=== PATIENT | female | born 1970 | race Caucasian/White ===

== ENCOUNTER 2017-02-19 18:22 | Emergency (ER) | payer BC | END 2017-02-19 20:06 | disposition left against medical advice (07) | LOC: UCCORT 18:22 | DX: L98.9 Disorder of the skin and subcutaneous tissue, unspecified (principal); Z53.21 Procedure and treatment not carried out due to patient leaving prior to being seen by health care provider ==

== ENCOUNTER 2017-11-20 16:32 | Emergency (ER) | payer BC ==
--- OUTSIDE RECORDS SUMMARY | 2017-11-20 16:45 | XMS REPORT ---
:1970 External Reference #:[id number] Author Organization [facility] Address [address], [address] [place] [address] Phone [phone] Care Team Providers Name Role Phone Shelby Virk, CVOR NURSE Care Team Information Clin Nurse Unavailable Shelby Virk, CVOR NURSE Primary Care Physician Unavailable Payers Type Date Identification Numbers Payment Provider Subscriber Commercial Policy Number: [id number] Elana Tesfaye PayID: [id number] [address] [address] [place] [address] Problems Date Description Provider Status Onset: 03/28/2011 Localized, primary osteoarthritis Reji Burrows MD Active Onset: 03/27/2013 Localized, primary osteoarthritis Reuben Juan M.D., Active of the pelvic region and thigh FACS Onset: 07/05/2017 Obstructive sleep apnea syndrome Jordan Ling MD Active Onset: 07/05/2017 Tobacco user Jordan Ling MD Active Onset: 07/05/2017 Premature beats Jordan Ling MD Active Onset: 07/26/2016 Aftercare following joint Eric Dave M.D. Active replacement surgery Onset: 03/09/2016 Morbid obesity Gaurav Vasquez M.D. Active Onset: 07/08/2015 Arthralgia of the pelvic region Gaurav Vasquez M.D. 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 2017 24HR by mouth kevin Hickman M.D., [facility] Citalopram / Active Tablets 40mg 1 by Unknown Hydrobromide 0000 mouth every day Singulair / Active Tablets 10mg 1 by Unknown 0000 mouth every day B Complex-B12 / Active Tablets 500mcg once Unknown 0000 daily Biotin / Active Capsules 5000mcg 1 by Unknown 0000 mouth every day Olmesartan / Active Tablets 40-25mg 1 by Unknown Medoxomil/[place] 0000 mouth chlorothiazide every day Esomeprazole / Active Capsules 40mg 1 tab Unknown Magnesium 0000 DR every day every morning Buspirone HCL / Active Tablets 15mg take one Unknown 0000 tablet by mouth three times a day as needed for anxiety Celecoxib / Active Capsules 200mg 2 po Unknown 0000 daily Hydroxyzine HCL / Active Tablets 25mg 1-2 tabs Unknown 0000 by mouth three times a day as needed anxiety Oxycodone HCL / Active Tablets 5mg 1-2 every Unknown 0000 4-6 hour as needed pain Calcium 600 / Active Tablets 600mg 1 by Unknown 0000 mouth every day Multi Vitamin / Active Tablets 1 by Unknown Daily 0000 mouth every day Claritin / Active Tablets 10mg take one Unknown 0000 tablet by mouth every day Augmentin 09/01/ Hx Tablets 875-125mg 14tabs 1 tablet J01.90 Waldo M. 2017 twice kevin Hickman M.D., [facility] Diltiazem CD 07/05/ Hx Caps ER 120mg 30caps 1 by I10 Jordan 2017 - 24HR mouth MD Sushil 09/01/ every day 2018 (can be taken am or at bedtime) I49.3 Hydrocodone-Acetaminophen 02/25/2015 - Hx Tablets 5-325mg 30tabs 1 by Gaurav 03/09/2016 mouth Pedro, every 6 M.D. hours as needed pain Fexofenadine HCL - Hx Unknown 09/21/2010 Nexium - Hx 40mg 1 po qd Unknown 02/25/2015 Diovan HCT - Hx 160mg 1 po qd Unknown 02/25/2015 Provera - Hx Unknown 09/21/2010 Multivitamins - Hx Unknown 09/21/2010 Vitamin D - Hx 3000 1po qd Unknown 05/25/2016 Ibuprofen - Hx Unknown 09/21/2010 Aleve - Hx Unknown 09/21/2010 Celebrex - Hx Capsules 200mg 7caps 1 po bid Unknown 07/26/2016 Fexofenadine HCL - Hx Tablets 180mg 1 po qd Unknown 02/09/2011 Calcium Hx Tablets 500mg 1 po qd Unknown Azelastine HCL - Hx Solution 0.05% Unknown 02/25/2015 Celexa - Hx Tablets 40mg 30tabs 1 po qd Unknown 02/25/2015 Lorazepam - Hx Tablets 0.5mg 30tabs 1 po tid Unknown 02/25/2015 prn Lidocaine - Hx Patches 5% Unknown 03/09/2016 Oxycodone HCL - Hx Capsules 5mg 1 by Unknown 07/26/2016 mouth every 8 hours Lorazepam Hx Tablets 0.5mg 1 by Unknown mouth three times a day as needed Hydrocodone-Acetaminophen Hx Tablets 5-325mg 30tabs 1 by Eric mouth [place], every 6 M.D. hours as needed pain Metoprolol Succinate ER - Hx Tablets ER 25mg 1 by Unknown 07/05/2017 24HR mouth every day Vitamin B Complex 100 Hx Injection 100 once a Unknown month Medications Administered in Office Medication Date Status Form Strength Qnty SIG Indications Ordering Provider Depomedrol 80 Administered Injection Malika S. mg 018 Medrano, [facility] Depomedrol 80 Administered Injection Malika S. mg 018 Medrano, [facility] Depomedrol Administered Injection Gaurav 40mg/1cc 016 Alfonzo Vasquez Depomedrol 80 Administered Injection Mireya mg 010 [facility] Depomedrol 80 Administered Injection Mireya mg 010 [facility] N[facility] Depomedrol Administered Injection Luis, 40mg/1cc 009 Arabella Rick MD Vital Signs Date Vital Result Comment 10/24/2017 BP Systolic Sitting Left Arm 130 mmHg BP Diastolic Sitting Left Arm 84 mmHg Heart Rate 77 /min Respiratory Rate 18 /min Height 65 inches 5'5" Weight 171.00 lb BMI (Body Mass Index) 28.5 kg/m2 BSA (Body Surface Area) 1.85 m2 [place] body weight in kilograms 57 O2 % BldC Oximetry 95 % Room air 10/03/2017 BP Systolic Sitting Left Arm 176 mmHg BP Diastolic Sitting Left Arm 106 mmHg Body Temperature 97.3 F Heart Rate 98 /min Respiratory Rate 18 /min Height 65 inches 5'5" Weight 181.00 lb BMI (Body Mass Index) 30.1 kg/m2 BSA (Body Surface Area) 1.90 m2 [place] body weight in kilograms 57 O2 % BldC Oximetry 97 % 09/01/2017 BP Systolic Sitting Left Arm 142 mmHg BP Diastolic Sitting Left Arm 95 mmHg Heart Rate 92 /min Respiratory Rate 18 /min Height 65 inches 5'5" Weight 189.00 lb BMI (Body Mass Index) 31.4 kg/m2 BSA (Body Surface Area) 1.93 m2 [place] body weight in kilograms 57 07/05/2017 BP Systolic Sitting Left Arm 128 mmHg BP Diastolic Sitting Left Arm 68 mmHg Heart Rate 98 /min Respiratory Rate 16 /min Height 65 inches 5'5" Weight 189.00 lb BMI (Body Mass Index) 31.4 kg/m2 BSA (Body Surface Area) 1.93 m2 [place] body weight in kilograms 57 12/01/2016 BP Systolic Sitting Left Arm 112 mmHg BP Diastolic Sitting Left Arm 87 mmHg Body Temperature 97.7 F Heart Rate 80 /min Height 65 inches 5'5" Weight 195.00 lb BMI (Body Mass Index) 32.4 kg/m2 BSA (Body Surface Area) 1.96 m2 [place] body weight in kilograms 57 07/26/2016 BP Systolic 154 mmHg BP Diastolic 94 mmHg Height 65 inches 5'5" Weight 215.00 lb BMI (Body Mass Index) 35.8 kg/m2 BSA (Body Surface Area) 2.04 m2 [place] body weight in kilograms 57 06/28/2016 Height 64.5 inches 5'4.50" Weight 220.00 lb BMI (Body Mass Index) 37.2 kg/m2 BSA (Body Surface Area) 2.05 m2 [place] body weight in kilograms 56 03/09/2016 BP Systolic Sitting Left Arm 158 mmHg BP Diastolic Sitting Left Arm 111 mmHg Heart Rate 86 /min Height 64.5 inches 5'4.50" Weight 228.00 lb BMI (Body Mass Index) 38.5 kg/m2 BSA (Body Surface Area) 2.08 m2 [place] body weight in kilograms 56 07/08/2015 Weight 267.00 lb 05/05/2015 Weight 281.00 lb 12/17/2014 Height 65.25 inches 5'5.25" Weight 337.00 lb BMI (Body Mass Index) 55.6 kg/m2 BSA (Body Surface Area) 2.48 m2 03/24/2014 Height 66 inches 5'6" Weight 345.00 lb BMI (Body Mass Index) 55.7 kg/m2 BSA (Body Surface Area) 2.52 m2 03/27/2013 BP Systolic Sitting Right Arm 132 mmHg BP Diastolic Sitting Right Arm 82 mmHg Height 65.75 inches 5'5.75" Weight 313.00 lb BMI (Body Mass Index) 50.9 kg/m2 BSA (Body Surface Area) 2.41 m2 03/21/2013 BP Systolic Sitting Right Arm 142 mmHg BP Diastolic Sitting Right Arm 80 mmHg Height 65.75 inches 5'5.75" Weight 315.00 lb BMI (Body Mass Index) 51.2 kg/m2 BSA (Body Surface Area) 2.42 m2 09/27/2011 BP Systolic Sitting Left Arm 136 mmHg BP Diastolic Sitting Left Arm 86 mmHg Heart Rate 88 /min Respiratory Rate 16 /min Height 65.60 inches 5'5.60" Weight 316.00 lb BMI (Body Mass Index) 51.6 kg/m2 02/10/2011 Height 65 inches 5'5" Weight 325.00 lb BMI (Body Mass Index) 54.1 kg/m2 Results Test Date Test Result H/L Range Note Lipid 07/19/2017 Chol/ HDL Ratio 1.9 ratio Low 3.7-5.6 1 Cholesterol 234 mg/dL High 50-199 1 HDL 126 mg/dL High 35-85 1, 2 LDL (Calc) 90 mg/dL 20-99 1, 3 Triglycerides 90 mg/dL 30-200 1 VLDL 18 mg/dL 2-29 1 Hepatic Panel (LFT) 07/19/2017 Albumin 4.7 g/dL 3.6-4.9 1 Alkaline Phosphatase 68 U/L 24-140 1 Alt 11 U/L 3-42 1 Ast 18 U/L 8-42 1 Direct Bilirubin 0.1 mg/dL 0.0-0.4 1 Total Bilirubin 0.7 mg/dL 0.1-1.3 1 Total Protein 6.8 g/dL 6.0-8.0 1 Basic (BMP) 07/19/2017 Minda Egfr >60 >60 1, 4 Anion Gap 7 mmol/L 5-15 1, 5 BUN 10 mg/dL 6-26 1 Calcium 9.9 mg/dL 8.5-10.2 1 Carbon Dioxide 32 mmol/L 24-34 1 Chloride# 91 mmol/L Low 97-110 1, 6 Creatinine 0.6 mg/dL 0.5-1.4 1 Glucose 103 mg/dL 70-105 1 Non Minda Egfr >60 >60 1, 7 Potassium 4.1 mmol/L 3.5-5.2 1 Sodium 130 mmol/L Low 135-146 1, 8 CBC With Auto Diff 07/19/2017 Abs Basophils 0.1 K/uL 0.0-0.3 1 Abs Eosinophils 0.1 K/uL 0.0-0.5 1 Abs Lymphocytes 1.7 K/uL 0.8-5.5 1 Abs Monocytes 0.4 K/uL 0.1-1.0 1 Abs Neutrophils 3.6 K/uL 2.1-8.0 1 Basophil 1.3 % 0.0-4.0 1 Eosinophil 1.8 % 0.0-5.0 1 Hematocrit 44.6 % 36.0-47.0 1 Hemoglobin 15.7 gm/dL 12.0-16.0 1 Lymphocyte 28.9 % 16.0-52.0 1 MCH 35.5 pg High 27.0-32.0 1 MCHC 35.1 g/dL 32.0-36.0 1 MCV 101.0 fL High 80.0-97.0 1 MPV 7.6 FL 7.1-10.7 1 Monocyte 7.0 % 2.0-10.0 1 Neutrophil 61.0 % 35.0-75.0 1 PLT Count 292 K/ul 140-400 1 RBC 4.42 M/uL 4.00-5.40 1 RDW 11.7 % 11.5-14.5 1 WBC 5.9 K/uL 4.1-11.0 1 Sodium SerPl-sCnc 11/04/2016 Sodium SerPl-sCnc 136 136-145 Potassium SerPl-sCnc 11/04/2016 Potassium SerPl-sCnc 3.7 3.5-5.1 Glucose [Mass/volume] in 11/04/2016 Glucose [Mass/volume] in 97 74-106 Serum or Plasma Serum or Plasma Creat SerPl-mCnc 11/04/2016 Creat SerPl-mCnc 0.5 Low 0.6-1.3 Chloride SerPl-sCnc 11/04/2016 Chloride SerPl-sCnc 99 98-107 Calcium SerPl-mCnc 11/04/2016 Calcium SerPl-mCnc 8.9 8.5-10.1 Co2 SerPl-sCnc 11/04/2016 Co2 SerPl-sCnc 30 21-32 BUN/Creat SerPl 11/04/2016 BUN/Creat SerPl 14.0 BUN SerPl-mCnc 11/04/2016 BUN SerPl-mCnc 7 7-18 Anion Gap SerPl-sCnc 11/04/2016 Anion Gap SerPl-sCnc 7 Low 8-16 Laboratory test finding 11/04/2016 Magnesium 2.0 mg/dL 1.8-2.4 9 Basic Metabolic Panel 11/04/2016 Glucose 97 mg/dL 74-106 9 BUN 7 mg/dL 7-18 9 Creatinine 0.5 mg/dL Low 0.6-1.3 9 Glom Filtration Rate, Estimate >60 mL/min >60 9 If >60 mL/min >60 9, 10 BUN/Creat 14.0 ratio 9 Sodium 136 mmol/L 136-145 9 Potassium 3.7 mmol/L 3.5-5.1 9 Chloride 99 mmol/L 98-107 9 Carbon Dioxide 30 mmol/L 21-32 9 Anion Gap 7 mEq/L Low 8-16 9 Calcium 8.9 mg/dL 8.5-10.1 9 Prot Ur 11/03/2016 Prot Ur Negative Negative Strip.auto-mCnc Strip.auto-mCnc Nitrite Ur Ql 11/03/2016 Nitrite Ur Ql Negative Negative Strip.auto Strip.auto Leukocyte esterase Ur 11/03/2016 Leukocyte esterase Negative Negative Ql Strip.auto Ur Ql Strip.auto Ketones Ur 11/03/2016 Ketones Ur Negative Negative Strip.auto-mCnc Strip.auto-mCnc Color Ur 11/03/2016 Color Ur Yellow Yellow Osmolality, serum 11/03/2016 Osmolality, serum 267 Low 275-295 WBC # Bld Auto 11/03/2016 WBC # Bld Auto 8.1 3.1-10.7 Serum or plasma total 11/03/2016 Serum or plasma 0.3 0.2-1.0 bilirubin measurement total bilirubin (mass/ measurement (mass/volume) RDW RBC Auto-Rto 11/03/2016 RDW RBC Auto-Rto 12.8 11.7-14.4 RDW RBC Auto 11/03/2016 RDW RBC Auto 44.4 3-47 Urine appearance 11/03/2016 Urine appearance Clear Clear determination determination Urine glucose 11/03/2016 Urine glucose Negative Negative measurement by measurement by automated test strip automated test strip (mass/volume) Urine hemoglobin 11/03/2016 Urine hemoglobin Negative Negative detection by detection by automated test strip automated test strip Urine total bilirubin 11/03/2016 Urine total Negative Negative detection by bilirubin detection automated test by automated test strip Urobilinogen Ur 11/03/2016 Urobilinogen Ur 0.2 0.2-1.0 Strip-aCnc Strip-aCnc pH Ur Strip.auto 11/03/2016 pH Ur Strip.auto 6.0 Low 6.5-7.5 Random urine 11/03/2016 Random urine 12.5 potassium measurement potassium measurement Random urine sodium 11/03/2016 Random urine sodium 71 measurement measurement Automated erythrocyte 11/03/2016 Automated 33.5 High 25.9-32.7 mean corpuscular erythrocyte mean hemoglobin corpuscular hemoglobin (mass per erythrocyte) Aspartate 11/03/2016 Aspartate 18 15-37 aminotransferase aminotransferase [Enzymatic [Enzymatic activity/vol activity/volume] in Serum or Plasma Albumin/Glob SerPl 11/03/2016 Albumin/Glob SerPl 1.1 Albumin SerPl-mCnc 11/03/2016 Albumin SerPl-mCnc 4.1 3.4-5.0 Alt SerPl-cCnc 11/03/2016 Alt SerPl-cCnc 22 12-78 Alp SerPl-cCnc 11/03/2016 Alp SerPl-cCnc 75 45-117 Laboratory test 11/03/2016 Thyroid Stim Hormone 0.62 uIU/mL 0.30-4.20 9 finding Urine osmolality 11/03/2016 Urine osmolality 159 Low 250-900 Automated erythrocyte 11/03/2016 Automated 34.9 High 30.8-34.3 mean corpuscular erythrocyte mean hemoglobin corpuscular hemoglobin concentration measurement (mass/volume) Basophils [#/volume] 11/03/2016 Basophils [#/volume] 0.05 0.0-0.1 in Blood by Automated in Blood by count Automated count Basophils/leuk NFr 11/03/2016 Basophils/leuk NFr 0.6 0.0-1.1 Bld Auto Bld Auto Blood erythrocytes 11/03/2016 Blood erythrocytes 4.98 3.90-5.40 automated count automated count (number/volume) (number/volume) Blood hemoglobin 11/03/2016 Blood hemoglobin 16.7 High 11.6-15.8 measurement measurement (mass/volume) (mass/volume) Prot SerPl-mCnc 11/03/2016 Prot SerPl-mCnc 7.8 6.4-8.2 Platelets [#/volume] 11/03/2016 Platelets [#/volume] 311 150-400 in Blood by Automated in Blood by count Automated count PMV Bld Auto 11/03/2016 PMV Bld Auto 9.2 8.9-12.4 Neutrophils/leuk NFr 11/03/2016 Neutrophils/leuk NFr 54.6 40.4-72.8 Bld Auto Bld Auto Neutrophils # Bld 11/03/2016 Neutrophils # Bld 4.41 1.8-7.0 Auto Auto Monocytes/leuk NFr 11/03/2016 Monocytes/leuk NFr 9.6 4.3-13.2 Bld Auto Bld Auto MCV RBC Auto 11/03/2016 MCV RBC Auto 96.2 80.9-99.0 Lymphocytes/leuk NFr 11/03/2016 Lymphocytes/leuk NFr 33.3 20.0-42.0 Bld Auto Bld Auto Lymphocytes 11/03/2016 Lymphocytes 2.68 1.0-4.0 [#/volume] in Blood [#/volume] in Blood by Automated count by Automated count Hct VFr Bld Auto 11/03/2016 Hct VFr Bld Auto 47.9 High 36.0-46.1 Globulin Ser 11/03/2016 Globulin Ser 3.7 1.9-4.3 Calc-mCnc Calc-mCnc Eosinophil/leuk NFr 11/03/2016 Eosinophil/leuk NFr 1.9 0.0-6.6 Bld Auto Bld Auto Eosinophil # Bld Auto 11/03/2016 Eosinophil # Bld 0.15 0.0-0.5 Auto Blood monocytes 11/03/2016 Blood monocytes 0.77 0.3-0.9 automated count automated count (number/volume) (number/volume) Urine opiates 10/27/2016 Urine opiates Negative detection by detection by screening method screening method Urine methadone 10/27/2016 Urine methadone Negative screen screen Urine cocaine 10/27/2016 Urine cocaine Negative metabolite screen metabolite screen Epithelial cells 10/27/2016 Epithelial cells Moderate None Seen [Presence] in Urine [Presence] in Urine sediment by L sediment by Light microscopy Leukocytes [#/area] 10/27/2016 Leukocytes [#/area] TNTC High 0-7 in Urine sediment by in Urine sediment by Microscop Microscopy high power field Drug screen comment 10/27/2016 Drug screen comment * [Interpretation] in [Interpretation] in Urine Urine Serum or plasma 10/27/2016 Serum or plasma 2.3 Low 10.0-30.0 acetaminophen acetaminophen measurement (mass/vo measurement (mass/volume) Bacteria [Presence] 10/27/2016 Bacteria [Presence] Moderate High None Seen in Urine sediment by in Urine sediment by Light simeon Light microscopy Bacteria Ur Cult 10/27/2016 Bacteria Ur Cult Organism: Escherichia Coli Amorphous sediment 10/27/2016 Amorphous sediment Very Few Negative [Presence] in Urine [Presence] in Urine sediment by sediment by Light microscopy Serum or plasma 10/27/2016 Serum or plasma 3.9 2.8-20.0 salicylates salicylates measurement measurement (mass/volu (mass/volume) Urine amphetamines 10/27/2016 Urine amphetamines Negative detection by detection by screening method screening method Urine barbiturate 10/27/2016 Urine barbiturate Negative screening test screening test Urine benzodiazepines 10/27/2016 Urine Negative measurement by benzodiazepines screening met measurement by screening method (mass/volume) Urine cannabinoids 10/27/2016 Urine cannabinoids Positive High detection by detection by screening method screening method Basic Metabolic Panel 07/13/2016 Glucose 92 mg/dL 74-106 11 BUN 8 mg/dL 7-18 11 Creatinine 0.4 mg/dL Low 0.6-1.3 11 Glom Filtration Rate, Estimate >60 mL/min >60 11 If >60 mL/min >60 11, 12 BUN/Creat 20.0 ratio 11 Sodium 138 mmol/L 136-145 11 Potassium 3.4 mmol/L Low 3.5-5.1 11 Chloride 102 mmol/L 98-107 11 Carbon Dioxide 27 mmol/L 21-32 11 Anion Gap 9 mEq/L 8-16 11 Calcium 8.2 mg/dL Low 8.5-10.1 11 CBC 07/13/2016 White Blood Count 5.8 K/uL 3.1-10.7 11 Red Blood Count 2.97 M/uL Low 3.90-5.40 11 Hemoglobin 10.7 gm/dL Low 11.6-15.8 11 Hematocrit 30.8 % Low 36.0-46.1 11 Mean Cell Volume 103.7 fl High 80.9-99.0 11 Mean Corpuscular HGB 36.0 pg High 25.9-32.7 11 Mean Corpuscular HGB Conc 34.7 g/dL High 30.8-34.3 11 Platelet Count 173 K/uL 150-400 11 Red Cell Distri Width %CV 11.9 % 11.7-14.4 11 Mean Platelet Volume 10.2 fL 8.9-12.4 11 Basic Metabolic Panel 07/12/2016 Glucose 103 mg/dL 74-106 11 BUN 15 mg/dL 7-18 11 Creatinine 0.7 mg/dL 0.6-1.3 11 Glom Filtration Rate, Estimate >60 mL/min >60 11 If >60 mL/min >60 11, 13 BUN/Creat 21.4 ratio 11 Sodium 129 mmol/L Low 136-145 11 Potassium 3.7 mmol/L 3.5-5.1 11 Chloride 93 mmol/L Low 98-107 11 Carbon Dioxide 27 mmol/L 21-32 11 Anion Gap 9 mEq/L 8-16 11 Calcium 8.0 mg/dL Low 8.5-10.1 11 CBC 07/12/2016 White Blood Count 9.0 K/uL 3.1-10.7 11 Red Blood Count 3.16 M/uL Low 3.90-5.40 11 Hemoglobin 11.1 gm/dL Low 11.6-15.8 11 Hematocrit 32.5 % Low 36.0-46.1 11 Mean Cell Volume 102.8 fl High 80.9-99.0 11 Mean Corpuscular HGB 35.1 pg High 25.9-32.7 11 Mean Corpuscular HGB Conc 34.2 g/dL 30.8-34.3 11 Platelet Count 193 K/uL 150-400 11 Red Cell Distri Width %CV 12.0 % 11.7-14.4 11 Mean Platelet Volume 9.8 fL 8.9-12.4 11 MRSA Screen 06/28/2016 MRSA Screen NO METHICILLIN R <SEE NOTE> 14, 15 1 SCHEDULE 1 WEEK PRIOR TO NEXT VISIT 2 Per NCEP ATP III Guidelines: Results lower than 40 mg/dL are suggestive of increased risk for coronary artery disease. Results > or=to 60 mg/dL are considered a negative risk factor. 3 Per NCEP ATP III Guidelines: Normal Population <130 Patients with medical conditions: CHD/DM Optimal: <100 Borderline high: 130-159 High: 160-189 Very high: >189 4 Concerning GFR Guidelines for Americans: Normal function or mild renal disease, if clinically at risk: >/=60 mL/min Moderately decreased: 30-59 Severely decreased: 15-29 Renal failure: <15 5 Updated Reference Range 6 Updated reference range on new analyzer 7 Concerning GFR Guidelines: Normal function or mild renal disease, if clinically at risk: >/=60 mL/min Moderately decreased: 30-59 Severely decreased: 15-29 Renal failure: <15 Glomerular Filtration Rate (GFR) is estimated based on the MDRD equation, which assumes a steady state for creatinine as recommended by the National Kidney Disease Education Program in conjunction with the National Institutes of Health and the National Kidney Foundation. Clinical conditions in which it may be necessary to measure GFR by using clearance methods include extremes of age and body size, severe malnutrition or obesity, diseases of skeletal muscle, paraplegia or quadriplegia, vegetarian diet, rapidly changing kidney function, and calculation of the dose of potentially toxic drugs that are excreted by the kidneys. 8 Updated reference range on new analyzer 9 SYNCOPE, HYPONATREMIA 10 Note: Persistent reduction for 3 months or more in an eGFR <60 mL/min/1.73 m2 defines CKD. Patients with eGFR values >/=60 mL/min/1.73 m2 may also have CKD if evidence of persistent proteinuria is present. The original MDRD equation for estimated GFR is not valid for patients less than 18 years of age. Additional information may be found at www.kdoqi.org. 11 END STAGE DJD LEFT HIP 12 Note: Persistent reduction for 3 months or more in an eGFR <60 mL/min/1.73 m2 defines CKD. Patients with eGFR values >/=60 mL/min/1.73 m2 may also have CKD if evidence of persistent proteinuria is present. The original MDRD equation for estimated GFR is not valid for patients less than 18 years of age. Additional information may be found at www.kdoqi.org. 13 Note: Persistent reduction for 3 months or more in an eGFR <60 mL/min/1.73 m2 defines CKD. Patients with eGFR values >/=60 mL/min/1.73 m2 may also have CKD if evidence of persistent proteinuria is present. The original MDRD equation for estimated GFR is not valid for patients less than 18 years of age. Additional information may be found at www.kdoqi.org. 14 M16.12 15 NO METHICILLIN RESISTANT STAPHYLOCOCCUS AUREUS ISOLATED. Procedures Date CPT Code Description Status 10/03/2017 Asp./Injection major joint Completed 09/01/2017 14830 EKG-Tracing And Report Completed 07/21/2017 75554 Event Monitor Inter/Review Only Completed 07/05/2017 94628 EKG-Tracing And Report Completed 05/26/2017 30279 Event Monitor Inter/Review Only Completed 12/01/201606102 Asp./Injection major joint Completed 11/04/2016 51320 Echocardiogram Complete Completed 08/31/201690132 Asp./Injection major joint Completed 08/31/201617931 Asp./Injection major joint Completed 07/26/2016 59687 Radiologic Exam Hip Unilateral With Pelvis 2-3 Views Completed 07/11/2016 94281 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 07/11/2016 49471 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 07/11/2016 02097 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 05/26/2016 07319 Radiologic Exam Hip Unilateral With Pelvis 2-3 Views Completed 05/05/2015 84359 Radiologic Exam Hip Unilateral With Pelvis 2-3 Views Completed 05/05/2015 65778 Asp./Injection major joint Completed 03/24/2014 73913 Radiology, Hip Complete 2 Views Completed 03/24/2014 33923 Radiology, Knee 3 Views Completed 03/24/2014 20031 Radiology, Knee 3 Views Completed 03/24/2014 19812 Radiology, Both Knees Standing Completed 03/27/2013 34640 Radiology, Hip Complete 2 Views Completed 03/23/2012 75984 Radiology, Knee 3 Views Completed 03/23/2012 59069 Radiology, Knee 3 Views Completed 03/23/2012 00980 Radiology, Knee 3 Views Completed 01/18/2012 75530 Anesthesia, Vaginal Procedures Not Otherwise Spec Completed 01/13/2012 02445 EKG Interpretation And Report Only Completed 02/17/2011 92601 Anesthesia, Hysteroscopy, Hystersalpingography Completed 02/14/2011 07949 EKG Interpretation And Report Only Completed 02/10/2011 66818 Radiology, Knee 3 Views Completed 07/01/2010 67044 Anesthesia, Vaginal Procedures Not Otherwise Spec Completed 06/28/2010 40615 EKG Interpretation And Report Only Completed 01/11/201008709 Asp./Injection major joint Completed 11/30/200935156 Asp./Injection major joint Completed 10/13/2009 02147 Radiology, Knee 3 Views Completed 10/13/2009 38136 Radiology, Knee 3 Views Completed 06/12/2008 06960 Radiology, Knee 3 Views Completed 06/12/200839578 Asp./Injection major joint Completed 12/27/2006 37183 Neuroplasty median nerve at carpal tunnel Completed Encounters Type Date Location Provider CPT E/M Dx Office Visit 10/24/2017 11:00a Cardiology Office [place] 30023 I49.3 I10 G47.33 Office Visit 09/01/2017 2:20p Cardiology Office [place] [facility] 75433 I49.3 J01.90 R42 I10 G47.33 Office Visit 07/05/2017 9:30a [place] [address] I49.3 F17.210 G47.33 Office Visit 12/01/2016 10:00a Orthopaedic Office Eric Dave M.D. 64730 M17.11 Office Visit 10/13/2016 3:00p Orthopaedic Office Eric Dave M.D. 94040 M17.0 M16.12 Z47.1 Office Visit 05/26/2016 2:15p Orthopaedic Office Eric Dave M.D. 35407 M16.12 Office Visit 03/09/2016 1:45p [facility] Gaurav Vasquez M.D. 82614 M16.12 E66.01 Office Visit 07/08/2015 8:30a [facility]opa[facility] Office Gaurav Vasquez M.D. 90886 M25.552 Office Visit 02/25/2015 3:30p Orthopaedic Office Malika Medrano, 96155 M16.12 [facility] M25.552 Office Visit 12/17/2014 9:30a Orthopaedic Office Malika Medrano, 11809 715.15 [facility] 719.45 Office Visit 03/24/2014 8:45a Orthopaedic Office Reuben Juan 21576 715.15 M.DDl, FACS 715.16 719.45 719.46 Office Visit 03/27/2013 8:30a [facility]opa[facility] Office Reuben Juan 49374 719.45 M.David, FACS 715.15 Office Visit 03/21/2013 8:45a Orthopaedic Office Reuben Juan 38890 715.16 M.David, FACS Office Visit 03/23/2012 9:00a [place] [address] 715.16 Office Visit 09/27/2011 8:30a [place] [address] 715.16 Office Visit 03/28/2011 8:40a [place] [address] 715.16 Office Visit 02/10/2011 8:40a [place] [address] 715.16 Office Visit 09/22/2010 3:30p Orthopa[facility] Office Mireya Ricks N.P. 77984 719.46 Office Visit 01/11/2010 11:30a [facility]opa[facility] Office Mireya Ricks N.P. 55885 715.16 Office Visit 11/30/2009 3:15p [facility]opa[facility] Office Mireya Ricks N.P. 05193 715.16 Office Visit 10/13/2009 1:45p Orthopaedic Office Mireya Ricks N.P. 33022 715.16 Office Visit 07/16/2008 8:30a [place] [address] 715.16 Office Visit 06/12/2008 8:45a [place] [address] 719.46 715.16 Office Visit 11/27/2006 8:30a [place] [address] 354.0 Plan of Care Future Appointment(s):01/24/2018 11:00 am - Jordan Ling MD at Cardiology Lypyhk5410/24/2017 - Aleyda Dickinson, PAI49.3 Ventricular premature depolarizationComments:Monitor. Hold on ischemic testing given her lack of symptoms.I10 Essential (primary) hypertensionComments:No changes.G47.33 Obstructive sleep apnea (adult) (pediatric)Comments:Monitor.AllFollow up:3 months
[2017-11-20 16:59] VITALS: BP 101/64
--- NOTE | 2017-11-20 17:21 | UC ---
Upper Extremity HPI - HPI Summary HPI Summary: pt was lifting heavy boxes this past monday when she felt a sudden pull in her R upper arm with pain. the area remains sore and is now very bruised and has some swelling. she notes a bruise to the same arm=forearm but that was from horseplay with her dog and is starting to heal. she denies use of asa/blood thinners as well as any hx of easy brusing or bleeding. she has been txing with her chronic pain medications. pt applied an amos to the site. - History of Current Complaint Chief Complaint: UCUpperExtremity Stated Complaint: RIGHT ARM COMPLAINT Time Seen by Provider: 11/20/17 16:48 Hx Obtained From: Patient Hx Last Menstrual Period: ABLATION Onset/Duration: Sudden Onset Pain Intensity: 8 Aggravating Factor(s): Flexion Alleviating Factor(s): Rest Associated Signs And Symptoms: Positive: Swelling, Bruising. Negative: Numbness /Tingling - Allergies/Home Medications Allergies/Adverse Reactions: Allergies Allergy/AdvReac Type Severity Reaction Status Date / Time erythromycin base Allergy Severe GI Upset Verified 11/20/17 16:45 Adhesive Tape Allergy Unknown Verified 11/20/17 16:45 Reaction Details Home Medications: Home Medications Blood Pressure Med 1 tab DAILY 11/20/17 [History Confirmed 11/20/17] Diltiazem XR EXTEND Releas(NF) [Cartia XR (NF)] 1 tab DAILY 11/20/17 [History Confirmed 11/20/17] Montelukast Sodium TAB* [Singulair 10 MG TAB*] 10 mg DAILY 11/20/17 [History Confirmed 11/20/17] busPIRone TAB* [Buspar TAB *] 15 mg BID 11/20/17 [History Confirmed 11/20/17] hydrOXYzine HCL TAB* [Atarax 25 MG TAB*] 1 tab TID PRN 11/20/17 [History Confirmed 11/20/17] oxyCODONE TAB* [Roxycodone TAB 5 mg*] 5 mg TID PRN 11/20/17 [History Confirmed 11/20/17] PMH/Surg Hx/FS Hx/Imm Hx - Additional Past Medical History Additional PMH: chronic pain, allergies Psychological History: Depression - Surgical History Surgical History: Yes Surgery Procedure, Year, and Place: X2. EXC VULVAR WARTS 2010 [facility]. BREAST BX. ENDOMETRIAL ABLATION 2011 [facility];. bariatric surgery 01/27/15 done at [facility] [place]. LEFT HIP REPLACEMENT - Social History Alcohol Use: None Substance Use Type: None Smoking Status (MU): Former Smoker Type: Cigarettes Length of Time of Smoking/Using Tobacco: 25 YRS Have You Smoked in the Last Year: No When Did the Patient Quit Smoking/Using Tobacco: 2006 - Immunization History Most Recent Influenza Vaccination: 2013 Most Recent Tetanus Shot: 2017 Most Recent Pneumonia Vaccination: NONE Vaccination Up to Date: Yes Review of Systems Constitutional: Negative Skin: Negative Eyes: Negative ENT: Negative Respiratory: Negative Cardiovascular: Negative Gastrointestinal: Negative Genitourinary: Negative Motor: Negative Neurovascular: Negative Musculoskeletal: Other: - pain/bruising R upper arm Neurological: Negative Psychological: Negative Is Patient Immunocompromised?: No All Other Systems Reviewed And Are Negative: Yes Physical Exam Triage Information Reviewed: Yes Appearance: Well-Appearing Vital Signs: Initial Vital Signs Temp 98.1 F 11/20/17 16:49 Pulse 93 11/20/17 16:49 Resp 18 11/20/17 16:49 BP 101/64 11/20/17 16:49 Pulse Ox 97 11/20/17 16:49 Vital Signs Reviewed: Yes Eyes: Positive: Conjunctiva Clear ENT: Positive: Normal ENT inspection Neck: Positive: Supple, Nontender, No Lymphadenopathy Respiratory: Positive: Lungs clear, Normal breath sounds Cardiovascular: Positive: RRR, No Murmur Abdomen Description: Positive: Nontender, No Organomegaly, Soft Bowel Sounds: Positive: Present Musculoskeletal: Positive: Other: - RUE: Shoulder is nontender without deformity or tenderness. Medial distal aspect of her upper arm into the volar elbow has swelling and ecchymosis. Patient is exquisitely tender over the medial distal bicep and its corresponding tendon at its insertion point. She is no bony deformity or tenderness to the humerus or elbow regions. She is able to flex and extend plus supinate and pronate the elbow without difficulty; however, active flexion without resistance does cause her pain over the bruised and swollen area. I do note an older bruise over the proximal forearm which the patient notes is not related to this. The forearm is otherwise nontender as is the wrist and hand. The hand has full sensorivascular motor function. Neurological: Positive: Alert Psychological: Positive: Age Appropriate Behavior Skin Exam: Normal Upper Extremity Course/Dx - Course Course Of Treatment: No concern for fracture or infection. No concern for compartment syndrome. Exam is consistent with a distal bicep injury along with corresponding tendon injury. We'll place patient's arm in a sling and follow- up with her orthopedist at [facility] as soon as possible. Patient was advised to avoid use of her right arm and that she is to not lift with that arm until cleared. - Differential Dx/Diagnosis Provider Diagnoses: R distal bicep and tendon injury Discharge - Sign-Out/Discharge Documenting (check all that apply): Patient Departure - Discharge Plan Condition: Stable Disposition: HOME Patient Education Materials: Tendon Rupture (ED) Referrals: Shelby Virk [Primary Care Provider] - If Needed Eric Dave MD [Medical Doctor] - As Soon As Possible Additional Instructions: DIAGNOSIS: RIGHT DISTAL BICEP/TENDON INJURY SLING UNTIL CLEARED - Billing Disposition and Condition Condition: STABLE Disposition: Home
== END 2017-11-20 17:27 | disposition home or self-care (01) ==
LOC: UCCORT 16:32
DX: S46.201A Unspecified injury of muscle, fascia and tendon of other parts of biceps, right arm, initial encounter (principal); X50.0XXA Overexertion from strenuous movement or load, initial encounter; Y93.89 Activity, other specified; Y92.9 Unspecified place or not applicable; Z88.1 Allergy status to other antibiotic agents; G89.29 Other chronic pain; F32.9 Major depressive disorder, single episode, unspecified; Z87.891 Personal history of nicotine dependence
CPT/HCPCS: 99213; G0463

== ENCOUNTER 2018-01-12 07:13 | Day surgery (SDC) | payer BC ==
--- NOTE | 2017-12-29 10:31 | HP ---
HISTORY AND PHYSICAL: DATE OF ADMISSION: The patient is scheduled for surgery at [facility], 01/12/18. DATE OF HISTORY AND PHYSICAL EXAM: 12/21/17 ATTENDING PHYSICIAN: Dr. Shipman.* (DICTATED BY EMMY SANCHEZ NP) CHIEF COMPLAINT: Ganglion cyst, right wrist. HISTORY OF PRESENT ILLNESS: Guerline Tesfaye is a 47-year-old female, who was referred by Dr. Self for the nodule of the right wrist on the radial volar aspect of her right wrist. She has had this for many years, but has developed pain on occasion. An ultrasound was done, which showed the cyst to be 6.[address] Shipman has discussed the nature and course of a ganglion cyst and has discussed material risks and relevant alternatives to surgery. These were reviewed with the patient at her preoperative appointment including but not limited to infection, bleeding, poor healing, recurrence. The patient will sign an informed consent for excision of ganglion cyst, right wrist. PAST MEDICAL HISTORY: The patient has a history of osteoarthritis of the left hip and has a left hip replacement. The patient was morbidly obese and in 2014 , she had gastric bypass surgery. She notes that she also has high blood pressure. She has cardiac arrhythmia and a history of arrhythmia developing in May of 2017. She is followed by Dr. Jordan Ling in [place] and has been put on Cartia and has improved. PAST SURGICAL HISTORY: In 2014 for gastric bypass, Adolfo-en-Y; hip replacement, July of 2016; , 1991 and 1994. MEDICATIONS: 1. Biotin maximum strength 5000 mcg p.o. daily. 2. Buspirone HCl 15 mg 1 tablet twice a day. 3. She takes calcium D3. 4. Cartia XT 180 mg daily. 5. Celecoxib 200 mg. 6. Clobetasol propionate 0.05%. 7. Cyclobenzaprine HCl 5 mg. 8. Esomeprazole magnesium 40 mg. 9. Hydroxyzine HCl 25 mg 1 to 2 tablets as needed. 10. Metoprolol succinate ER 25 mg 1 tablet daily. 11. Montelukast sodium 10 mg. 12. Olmesartan medoxomil/hydrochlorothiazide 40/25 mg tablets daily. 13. Oxycodone HCl 5 mg, Dr. Self. 14. Vitamin B12 500 mcg. ALLERGIES: ADHESIVE TAPE and ERYTHROMYCIN. FAMILY HISTORY: Father at the age of 69, arthritis. Mother , COPD and emphysema. SOCIAL HISTORY: The patient is an administrative support associate. She has social alcohol use and she does have a history of tobacco use. She had smoked 1 pack of cigarettes a day for 20 years and quit in 2006. REVIEW OF SYSTEMS: She denied problems with anesthesia. She denied bleeding tendencies. She has not had any recent exposure to any communicable disease. PHYSICAL EXAMINATION GENERAL: Guerline Tesfaye is a 47-year-old female, well-developed, well-nourished , in no acute distress. VITAL SIGNS: Blood pressure 140/108, height 65 inches, weight 167, pulse 104. HEENT: Within normal limits. CHEST: Lungs clear. HEART: S1 and S2. Regular rate and rhythm. No extra heart sounds, murmurs, clicks, or rubs. ABDOMEN: Soft, nontender. Positive bowel sounds. Positive tympany. No masses or organomegaly. EXTREMITIES: +2 symmetrical radial pulses. Local exam shows a firm, fairly well- circumscribed mass of the right radial volar aspect, measured 6.9 mm on ultrasound. NEURO: Alert and oriented x3. The rest of the exam is grossly intact. IMPRESSION: Ganglion cyst, right wrist. PLAN: Same-day surgery admission to Dr. Shipman's service for excision of ganglion, right wrist. EMMY SANCHEZ NP [id number]/[facility] #: [id number] MTDD
[~2018-01-12 07:13] MED LIST: Buffered Lidocaine 0.9% SYRIN* 5 ML/SYR SYRINGE INTRADERM ONE
[2018-01-12] MEDS ORDERED: ceFAZolin 2 GM in NS PREMIX(*) 2 GM/100 ML BAG IVPB ONE (08:15)
[2018-01-12] MEDS ORDERED: Lidocaine 1% INJ* 10 MG/ML 30 ML SDV ONE (08:17)
[2018-01-12] MEDS ORDERED: Bupivacaine 0.5% W/EPI SDV* 30 ML VIAL ONE (08:17)
[2018-01-12] MEDS ORDERED: Levalbuterol 0.63MG/3ML NEB* UNIT OF USE INH ONE (08:18)
[2018-01-12] MEDS ORDERED: Midazolam* 1 MG/ML 2 ML VIAL (2 MG) ONE (08:35)
[2018-01-12] MEDS ORDERED: fentaNYL* 50 MCG/ML 2 ML VIAL (100 MCG VIAL) ONE (08:35)
[2018-01-12 09:38] VITALS: BP 123/86
[2018-01-12] MEDS ORDERED: Naloxone* 0.4 MG/ML 1 ML VIAL IV PRN (10:46)
--- NOTE | 2018-01-13 01:14 | OP ---
DATE OF OPERATION: 01/12/18 [facility] DATE OF : 66 SURGEON: Angelito Shipman MD WET POUR MIXER: Cyndy Parker NP ANESTHESIA: Local plus MAC. PRE-OP DIAGNOSIS: Right ganglion cyst of the right wrist. POST-OP DIAGNOSIS: Right ganglion cyst of the right wrist. OPERATIVE PROCEDURE: Excision of right wrist ganglion cyst. INDICATIONS: The patient is a 47-year-old female with a painful right wrist ganglion cyst riding over the right radial artery. For this reason, the patient is being taken to the operating room for excision of ganglion cyst. ESTIMATED BLOOD LOSS: None. DESCRIPTION OF PROCEDURE: The patient was taken to the operating room. She was placed in a supine position. She was prepped and draped in the usual sterile fashion. Lidocaine 1% was used to infiltrate right over the ganglion cyst and right over the area of the radial artery after proper identification of the site and time-out. Once lidocaine 1% was used to infiltrating the area and a good level of anesthesia was obtained, a transverse incision was made over , the incision was carried down to the skin and subcutaneous tissue. By dissecting the soft tissues, the dome of the capsule was identified and dissection was carried around it. The radial branch of the radial nerve was identified and preserved and mobilized. The dissection was carried down to the neck and on the medial side, the cyst was attached to the radial artery and by careful sharp dissection, the radial artery was dissected off the cyst exposing the neck of the cyst itself. At this point, we then transected the cyst at the base of the neck and sent the cyst as a specimen. The base was left open to be marsupialized and after this was completed, there was no evidence of bleeding. We then proceeded to close the incision, subcutaneous tissue with 4-0 Vicryl suture and skin with a subcuticular 5-0 Monocryl and Steri-Strips. Hand pressure dressing was applied. The patient tolerated the procedure well and she was taken in good condition to the recovery room. [id number]/[facility] #: [id number] MTDD
== END 2018-01-12 09:55 | disposition home or self-care (01) ==
LOC: OREAST 07:13
PROVIDERS: ATTEND Surgery
DX: M67.431 Ganglion, right wrist (principal); M16.12 Unilateral primary osteoarthritis, left hip; Z87.891 Personal history of nicotine dependence
CPT/HCPCS: 81025; J0690; J2250; J3010

== ENCOUNTER 2018-02-08 07:22 | Emergency (ER) | payer BC ==
--- OUTSIDE RECORDS SUMMARY | 2018-02-08 07:30 | XMS REPORT ---
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 667020105 dysplasia Problem Amenorrhea, N91.2 Active 23035608 unspecified Problem Lichen sclerosus L90.0 Active 88200498 et atrophicus Problem Personal history Z87.412 Active 664477528 of vulvar dysplasia Problem Body mass index Z68.31 Active 093631325779993 (BMI) 31.0-31.9, adult Problem Other specified N94.89 Active 926980367 conditions associated with female genital organs and menstrual cycle ALLERGIES Substance Reaction Event Type Date Status Adhesive Unknown Drug Allergy Jan, Active erythromycin vomiting Drug Allergy Jan, Active ENCOUNTERS Encounter Location Date Diagnosis [facility] 103 Jan, OBG[place], [place] [id number] [facility] May, OBG[place], [place] [id number] [facility] 103 Jan, Encounter for gynecological OBGYN [facility] examination (general) [place], [place] [id number] (routine) without abnormal findings Z01.419 and Encounter for screening mammogram for malignant neoplasm of breast Z12.31 [facility] 103 Jan, OBG[place] [id number] [facility] 103 Dec, OBG[place], [place] [id number] [facility] 103 Nov, Lichen sclerosus et OBGYN [facility] atrophicus L90.0 and Mild [place], [place] [id number] vaginal dysplasia N89.0 [facility] 103 Nov, Mild vaginal dysplasia OBGYN [facility] St N89.0 [place] [id number] [facility] 103 Sep, Mild vaginal dysplasia OBGYN [facility] N89.0 [place] [id number] [facility] 103 August, Mild vaginal dysplasia OBGYN [facility] N89.0 and Lichen sclerosus [place], [place] [id number] et atrophicus L90.0 [facility] 103 August, Lichen sclerosus et OBGYN [facility] atrophicus L90.0 [place] [id number] [facility] 103 August, Personal history of vulvar OBGYN [facility] dysplasia Z87.412 [place] [id number] [facility] 103 August, Lichen sclerosus et OBGYN [facility] atrophicus L90.0 and [place], [place] [id number] Personal history of vulvar dysplasia Z87.412 [facility] 103 Jul, OBG[place] [id number] [facility] 103 Jun, OBG[place] [id number] [facility] 103 Apr, O[place] [id number] [facility] 103 Jan, [facility].0 ; [place], [place] [id number] Amenorrhea, unspecified N91.2 and Body mass index (BMI) 31.0-31.9, adult Z68.31 [facility] 103 Jan, Other [facility] associated with female [place], [place] [id number] genital organs and menstrual cycle N94.89 [facility] 103 Jan, OBG[place], [place] [id number] [facility] 103 Dec, Lichen sclerosus [facility] at[facility] L90.0 ; [place], [place] [id number] Encounter for gynecological examination (general) (routine) without abnormal findings Z01.419 ; Encounter for screening for malignant neoplasm of cervix Z12.4 ; Personal history of vulvar dysplasia Z87.412 and Encounter for screening mammogram for malignant neoplasm of breast Z12.31 [facility] 103 Jul, Lichen sclerosus et [facility] atrophicus L90.0 and [place], [place] [id number] Personal history of vulvar dysplasia Z87.412 [facility] 103 Jul, OBGYN [place], [place] [id number] [facility] 103 Nov, [facility] [place], [place] [id number] (routine) with abnormal findings Z01.411 ; Lichen sclerosus et atrophicus L90.0 ; Encounter for screening for malignant neoplasm of cervix Z12.4 ; Personal history of vulvar dysplasia Z87.412 ; Encounter for screening mammogram for malignant neoplasm of breast Z12.31 and Unspecified lump in breast N63 [facility] 103 Oct, Lichen sclerosus et OBGYN 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 and Body mass index (BMI) 50-59.9 , adult Z68.43 [facility] 103 Jul, [place] [id number] [facility] 103 Apr, Personal history of vulvar [facility] dysplasia Z87.412 ; [place], [place] [id number] 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 and Body mass index (BMI) 50-59.9 , adult Z68.43 [facility] 103 Oct, [place] [id number] [facility] Jan, [place], [place] [id number] [facility] 103 Jan, VULVAR LESION 624.9 ; [facility] 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[place], [place]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 and HEMATURIA NOS 599.70 [facility] [address] [place] [place], [facility] [place] [id number] [facility] 103 Jan, [place] [id number] [facility] 103 Jan, 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) [place], [place] [id number] 624.02 and VULVAR LESION 624.9 [facility] 103 Dec, OBG[place], [place] [id number] [facility] 103 Dec, 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) [place], [place] [id number] 624.02 and VULVAR LESION 624.9 [facility] 103 Oct, O[place] [id number] [facility] 103 August, 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) [place], [place] [id number] 624.02 [facility] 103 Jul, Menometrorrhagia 626.2 and OBGYN [facility] 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[place], [place]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 [facility] 103 May, OBG[place] [id number] [facility] 103 May, Menometrorrhagia 626.2 and OBGYN [facility] 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[place], [place]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 [facility] 103 Apr, 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) [place], [place] [id number] 624.02 [facility] 103 Feb, Menometrorrhagia 626.2 [place] [id number] [facility] [address] [place], Feb, Medical [facility] [id number] [facility] 103 Feb, Menometrorrhagia 626.2 O[place]YN [place] [id number] [facility] 103 Jan, Menometrorrhagia 626.2 and OBGYN [facility] 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[place], [place]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 [facility] 103 Dec, Menometrorrhagia 626.2 and OBGYN [facility] 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[place], [place]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 [facility] 103 Dec, Menometrorrhagia 626.2 and OBGYN [facility] 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[place], [place]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 [facility] 103 Dec, Menometrorrhagia 626.2 [place] [id number] [facility] 103 Dec, O[place] [id number] [facility] 103 Nov, 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) [place], [place] [id number] 624.02 and Menometrorrhagia 626.2 [facility] 103 Nov, 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) [place], [place] [id number] 624.02 [facility] 103 August, 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) [place], [place] [id number] 624.02 [facility] 103 Jul, [place], [place] [id number] [facility] 103 Jul, 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) [place], [place] [id number] 624.02 [facility] 103 Jun, OBG[place], [place] [id number] [facility] [address] [place], Jun, [facility] [id number] [facility] 103 Jun, 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) [place], [place] [id number] 624.02 [facility] 103 Jun, O[place], [place] [id number] [facility] 103 Jun, 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[facility] neoplasia II (JUS II) [place] [id number] 624.02 [facility] 103 28 May, [place] [id number] [facility] 103 May, Condyloma acuminatum 078.11 OBGYN [facility] and Bleeder 286.9 [place], [place] [id number] [facility] 103 08 May, 2010 Condyloma acuminatum 078.11 [facility] and Menometrorrhagia 626.2 [place], [place] [id number] [facility] 103 14 Sep, 2009 STERILIZATION V25.2 [place] [id number] [facility] 103 09 Sep, 2009 OBG[place], [place] [id number] [facility] 103 05 Jul, 2009 STERILIZATION V25.2 [facility] Menometrorrhagia 626.2 [place] [id number] [facility] 103 17 Jun, 2009 STERILIZATION V25.2 and [facility] Stenosis of cervix 622.4 [place] [id number] [facility] 103 15 Jun, 2009 STERILIZATION V25.2 and OBGYN [facility] Menometrorrhagia 626.2 [place], [place] [id number] [facility] 103 09 Jun, 2009 FAMILY PLANNING V25.09 [place] [id number] [facility] 103 03 Jun, 2009 [place] [id number] [facility] 103 Jun, [place] [id number] [facility] 103 May, Menometrorrhagia 626.2 O[place]YN [place] [id number] [facility] 103 Dec, O[place], [place] [id number] [facility] 103 Nov, Menometrorrhagia 626.2 [place] [id number] [facility] 103 Oct, OBG[place], [place] [id number] [facility] 103 August, Condyloma acuminatum 078.11 [place] [id number] [facility] 103 August, Condyloma acuminatum 078.11 [place] [id number] [facility] 103 May, Menometrorrhagia 626.2 [facility] Condyloma acuminatum 078.11 [place], [place] [id number] [facility] 103 Apr, [place] [id number] [facility] 103 Mar, Condyloma acuminatum 078.11 [place] [id number] [facility] 103 Feb, Condyloma acuminatum 078.11 [place] [id number] [facility] 103 Feb, Menometrorrhagia 626.2 [facility] Condyloma acuminatum 078.11 [place], [place] [id number] [facility] 103 Feb, Menometrorrhagia 626.2 [place] [id number] [facility] 103 Feb, Menometrorrhagia 626.2 [place], [place] [id number] [facility] 103 Dec, Condyloma acuminatum 078.11 [facility] and Menometrorrhagia 626.2 [place], [place] [id number] [facility] 103 Nov, Condyloma acuminatum 078.11 [place], [place] [id number] [facility] 103 Nov, Condyloma acuminatum 078.11 [place], [place] [id number] [facility] 103 Oct, Condyloma acuminatum 078.11 [place], [place] [id number] [facility] 103 Oct, Condyloma acuminatum 078.11 [place], [place] [id number] IMMUNIZATIONS No Known Immunizations SOCIAL HISTORY Never Assessed REASON FOR REFERRAL FUNCTIONAL STATUS PLAN OF CARE Activity Details Follow Up 1 year annual Reason: VITAL SIGNS Height 65.5 in 2018-02-01 Weight 165 lbs 2018-02-01 BMI 27.04 kg/m2 2018-02-01 Blood pressure systolic 124 mm Hg 2018-02-01 Blood pressure diastolic 64 mm Hg 2018-02-01 MEDICATIONS Medication Instructions Dosage Frequency Start End Date Duration Status Date ibuprofen 800 orally 3 times a 1 tab(s) 8h 10 August, 7 days Active mg day 2018 Women's Once A Active Day Vitamin oxycodone 5 mg orally qd 3 tab(s) 24h Active clobetasol applied topically 1 kristine 90 days Active topical 0.05% once a week or twice a day for 3 weeks for flare-ups Nexium 40MG 1 TAB 24h Active calcium-vitamin orally qd 1 tab(s) 24h 30 day(s) Active D 600 mg-200 units Aldara 5% applied topically 1 kristine 14 August, 90 days Active 3 times a week 2017 hctz 25mg 1 tab 12h Active lidocaine applied topically 1 kristine 12h 10 August, 7 days Active topical 3% 2 times a day 2017 citalopram 40 orally once a day 1 tab(s) 24h Active mg Cardizem 30 mg orally qd 1 tab(s) 24h Active Vitamin B-12 orally once a day 1 tab(s) 24h Active 500 mcg olmesartan 20 orally once a day 1 tab(s) 24h Active mg PROCEDURES No Known procedures RESULTS No Results REASON FOR VISIT Annual Insurance Providers [facility] Member Patient Patient Patient Patient Patient Subscriber Subscriber Subscriber Group Insurance Plan Plan Plan Plan ID Relationship Address Phone Name Date of ID Name Date of No Type Insurance Insurance Insurance Coverage to Subscriber Address Phone Name Dates [employer] [phone] Blue [employer] self [place] [id number] Blue [address] [address] [place] [address] Shield [facility] [address] Blue [phone] Blue self [place] [phone] [id number] Cross/Blue [id number] 16 Cross/[place] [address] [facility] [address] [phone] Blue self [place] [phone] [id number] Cross/Blue [id number] 16 Cross/[place] [address] [facility] [address] [employer] [phone] [employer] self [place] [phone] [id number] Blue [id number] 89 [place] [address] Cross/Blue [facility] Cross/Blue Shield Critical access hospital Shield MEDICAL (GENERAL) HISTORY Type Description Date Medical History Hypertension Medical History heartburn Medical History allergies Medical History JUS 2-3 Medical History obesity Medical History left hip problems- hx of Medical History left hip replacement Medical History gastric bypass - [place] n [place] Surgical History breast lump surgery 2004 Surgical History 1991 Surgical History 1994 Surgical History left hand carpel tunnel surg 2006 Surgical History Vulvar wide local excision 07-01-2010 Surgical History site directed biopsy 01-07-11 Surgical History Hysterosocpy/novasure. 02-17-2011 Surgical History [place] gastric bypass surgery 01/22 Surgical History ESSURE Surgical History left hip replacement 07/11/16 Surgical History right gangleion cyst removed 01/12/18 Hospitalization History see above
--- OUTSIDE RECORDS SUMMARY | 2018-02-08 07:30 | XMS REPORT ---
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 140111131 dysplasia Problem Amenorrhea, N91.2 Active 48223070 unspecified Problem Lichen sclerosus L90.0 Active 20803490 et atrophicus Problem Personal history Z87.412 Active 196811418 of vulvar dysplasia Problem Body mass index Z68.31 Active 982517789487865 (BMI) 31.0-31.9, adult Problem Other specified N94.89 Active 709493256 conditions associated with female genital organs and menstrual cycle ALLERGIES No Information ENCOUNTERS Encounter Location Date Diagnosis [facility] Jan, [place]BGYN [place] [id number] [facility] May, [place]BGYN [place], [place] [id number] [facility] 103 Jan, Encounter for gynecological OBGYN [facility] examination (general) [place], [place] [id number] (routine) without abnormal findings Z01.419 and Encounter for screening mammogram for malignant neoplasm of breast Z12.31 [facility] 103 Jan, OBGYN [place] [id number] [facility] 103 Dec, OBG[place] [id number] [facility] 103 Nov, Lichen sclerosus et OBGYN [facility] St atrophicus L90.0 and Mild [place], [place] [id number] vaginal dysplasia N89.0 [facility] 103 Nov, Mild vaginal dysplasia OBGYN [facility] [address] N89.0 [place], [place] [id number] [facility] 103 Sep, Mild vaginal dysplasia OBGYN [facility] [address] N89.0 [place], [place] [id number] [facility] 103 August, Mild vaginal dysplasia OBGYN [facility] [address] N89.0 and Lichen sclerosus [place], [place] [id number] et atrophicus L90.0 [facility] 103 August, Lichen sclerosus et OBGYN [facility] atrophicus L90.0 [place], [place] [id number] [facility] 103 August, Personal history of vulvar OBGYN [facility] dysplasia Z87.412 [place], [place] [id number] [facility] 103 August, Lichen sclerosus et OBGYN [facility] atrophicus L90.0 and [place], [place] [id number] Personal history of vulvar dysplasia Z87.412 [facility] 103 Jul, [place]BG[place] [id number] [facility] 103 Jun, [place]YN [place] [id number] [facility] 103 Apr, O[place] [id number] [facility] 103 Jan, Lichen sclerosus et OBGYN [facility] St atrophicus L90.0 ; [place], [place] [id number] Amenorrhea, unspecified N91.2 and Body mass index (BMI) 31.0-31.9, adult Z68.31 [facility] 103 Jan, Other specified [facility] associated with female [place], [place] [id number] genital organs and menstrual cycle N94.89 [facility] 103 Jan, [place] [id number] [facility] 103 Dec, Lichen sclerosus et [facility] atrophicus L90.0 ; [place], [place] [id number] Encounter for gynecological examination (general) (routine) without abnormal findings Z01.419 ; Encounter for screening for malignant neoplasm of cervix Z12.4 ; Personal history of vulvar dysplasia Z87.412 and Encounter for screening mammogram for malignant neoplasm of breast Z12.31 [facility] 103 Jul, Lichen sclerosus et [facility] atrophicus L90.0 and [place], [place] [id number] Personal history of vulvar dysplasia Z87.412 [facility] 103 Jul, [place] [id number] [facility] 103 Nov, [facility]ological [facility] (general) [place], [place] [id number] (routine) with abnormal findings Z01.411 ; Lichen sclerosus et atrophicus L90.0 ; Encounter for screening for malignant neoplasm of cervix Z12.4 ; Personal history of vulvar dysplasia Z87.412 ; Encounter for screening mammogram for malignant neoplasm of breast Z12.31 and Unspecified lump in breast N63 [facility] 103 Oct, Lichen sclerosus et [facility] atrophicus L90.0 ; Personal [place], [place] [id number] history of vulvar dysplasia Z87.412 and Body mass index (BMI) 50-59.9 , adult Z68.43 [facility] 103 Jul, [facility]osus [facility] L90.0 ; Personal [place] [id number] history of vulvar dysplasia Z87.412 and Body mass index (BMI) 50-59.9 , adult Z68.43 [facility] 103 Jul, Personal history of vulvar [facility] dysplasia Z87.412 ; VULVAR [place], [place] [id number] LESION 624.9 ; 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 and Body mass index (BMI) 50-59.9 , adult Z68.43 [facility] 103 Jul, [place] [id number] [facility] 103 Apr, Personal history of vulvar [facility] dysplasia Z87.412 ; [place], [place] [id number] 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 and Body mass index (BMI) 50-59.9 , adult Z68.43 [facility] 103 Oct, [place] [id number] [facility] 103 Jan, [place] [id number] [facility] 103 Jan, VULVAR LESION 624.9 ; [facility] 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[place], [place]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02 and VULVAR LESION 624.9 [facility] 103 Oct, [place], [place] [id number] [facility] 103 August, 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) [place], [place] [id number] 624.02 [facility] 103 Jul, Menometrorrhagia 626.2 and OBGYN [facility] 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[place], [place]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) 624.02 [facility] 103 May, [place], [place] [id number] [facility] 103 May, Menometrorrhagia 626.2 and OBGYN [facility] 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[place], [place]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 [facility] 103 Apr, 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) [place], [place] [id number] 624.02 [facility] 103 Feb, Menometrorrhagia 626.2 [place]YN [place] [id number] [facility] [address] [place], Feb, Medical [facility] [id number] [facility] 103 Feb, Menometrorrhagia 626.2 [place]YN [place] [id number] [facility] 103 Jan, Menometrorrhagia 626.2 and OBGYN [facility] 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[place], [place]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) 624.02 [facility] 103 Dec, Menometrorrhagia 626.2 and OBGYN [facility] 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[place], [place]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) 624.02 [facility] 103 Dec, Menometrorrhagia 626.2 and OBGYN [facility] 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[place], [place]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) 624.02 [facility] 103 Dec, Menometrorrhagia 626.2 [place]YN [place] [id number] [facility] 103 Dec, O[place] [id number] [facility] 103 Nov, 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) [place], [place] [id number] 624.02 and Menometrorrhagia 626.2 [facility] 103 Nov, 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) [place], [place] [id number] 624.02 [facility] 103 August, 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OBGYN [facility] neoplasia II (UJS II) [place], [place] [id number] 624.02 [facility] 103 Jul, O[place] [id number] [facility] 103 Jul, 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) [place], [place] [id number] 624.02 [facility] 103 Jun, OBG[place] [id number] [facility] [facility] [address] [place], Jun, [facility] [id number] [place] [facility] 103 Jun, 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) [place], [place] [id number] 624.02 [facility] 103 Jun, [place] [id number] [facility] 103 Jun, 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) [place], [place] [id number] 624.02 [facility] 103 May, [place] [id number] [facility] 103 May, Condyloma acuminatum 078.11 OBGYN [facility] and Bleeder 286.9 [place], [place] [id number] [facility] 103 May, Condyloma acuminatum 078.11 [facility] and Menometrorrhagia 626.2 [place], [place] [id number] [facility] 103 14 Sep, 2009 STERILIZATION V25.2 [place] [id number] [facility] 103 Sep, [place] [id number] [facility] 103 Jul, STERILIZATION V25.2 and OBGYN [facility] Menometrorrhagia 626.2 [place], [place] [id number] [facility] 103 17 Jun, 2009 STERILIZATION V25.2 [facility] Stenosis of cervix 622.4 [place], [place] [id number] [facility] 103 Jun, STERILIZATION V25.2 and OBGYN [facility] Menometrorrhagia 626.2 [place], [place] [id number] [facility] 103 Jun, FAMILY PLANNING V25.09 [place]YN [place] [id number] [facility] 103 Jun, OBG[place], [place] [id number] [facility] 103 Jun, [place] [id number] [facility] 103 May, Menometrorrhagia 626.2 OBGYN [place], [place] [id number] [facility] 103 Dec, [place] [id number] [facility] 103 Nov, Menometrorrhagia 626.2 [place] [id number] [facility] 103 Oct, OBG[place], [place] [id number] [facility] 103 August, Condyloma acuminatum 078.11 [place] [id number] [facility] 103 August, Condyloma acuminatum 078.11 [place] [id number] [facility] 103 May, Menometrorrhagia 626.2 [facility] Condyloma acuminatum 078.11 [place], [place] [id number] [facility] 103 Apr, [place] [id number] [facility] 103 Mar, Condyloma acuminatum 078.11 [place] [id number] [facility] 103 Feb, Condyloma acuminatum 078.11 [place]YN [place] [id number] [facility] 103 Feb, Menometrorrhagia 626.2 [facility] Condyloma acuminatum 078.11 [place], [place] [id number] [facility] 103 Feb, Menometrorrhagia 626.2 [place]YN [place] [id number] [facility] 103 Feb, Menometrorrhagia 626.2 [place]YN [place], [place] [id number] [facility] 103 Dec, Condyloma acuminatum 078.11 OBGYN [facility] and Menometrorrhagia 626.2 [place], [place] [id number] [facility] 103 Nov, Condyloma acuminatum 078.11 [place] [id number] [facility] 103 Nov, Condyloma acuminatum 078.11 [place], [place] [id number] [facility] 103 Oct, Condyloma acuminatum 078.11 [place] [id number] [facility] 103 Oct, Condyloma acuminatum 078.11 [place] [id number] IMMUNIZATIONS No Known Immunizations SOCIAL HISTORY Never Assessed REASON FOR REFERRAL FUNCTIONAL STATUS PLAN OF CARE VITAL SIGNS MEDICATIONS Unknown Medications PROCEDURES No Known procedures RESULTS No Results REASON FOR VISIT Update Demographics - Personal Info Insurance Providers [facility] Member Patient Patient Patient Patient Patient Subscriber Subscriber Subscriber Group Insurance Plan Plan Plan Plan ID Relationship Address Phone Name Date of ID Name Date of No Type Insurance Insurance Insurance Coverage to Subscriber Address Phone Name Dates Blue Cross [phone] Blue Cross self [place] [id number] Blue [id number] [place] [address] [facility] [address] Blue [phone] Blue self [place] [id number] Cross/Blue [id number] 16 Cross/Blue [place] [address] [facility] [address] Blue [phone] Blue self [place] [id number] Cross/Blue [id number] 16 Cross/Blue [place] [address] [facility] [address] [place] [phone] [place] self [place] [phone] [id number] Blue [address] 89 Blue [place] 2 Cross/Blue [place] Cross/Blue Shield [address] [place] [address] MEDICAL (GENERAL) HISTORY Type Description Date Medical [...]
--- OUTSIDE RECORDS SUMMARY | 2018-02-08 07:32 | XMS REPORT ---
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 [address] May, [place], [place] [id number] [facility] [address] Jan, [place], [place] [id number] [facility] Dec, [place]BG[place] [id number] [facility] 103 Nov, Lichen sclerosus et OBGYN [facility] atrophicus L90.0 and Mild [place], [place] [id number] vaginal dysplasia N89.0 [facility] 103 Nov, Mild vaginal dysplasia OBGYN [facility] [address] N89.0 [place], [place] [id number] [facility] 103 Sep, Mild vaginal dysplasia OBGYN [facility] [address] N89.0 [place], [place] [id number] [facility] 103 August, Mild vaginal dysplasia OBGYN [facility] [address] N89.0 and Lichen sclerosus [place], [place] [id number] et atrophicus L90.0 [facility] 103 August, Lichen sclerosus et OBGYN [facility] atrophicus L90.0 [place], [place] [id number] [facility] August, Personal history of vulvar OBGYN [facility] dysplasia Z87.412 [place], [place] [id number] [facility] August, Lichen sclerosus et OBGYN [facility] atrophicus L90.0 and [place], [place] [id number] Personal history of vulvar dysplasia Z87.412 [facility] Jul, [place]BGYN [place] [id number] [facility] 103 Jun, [place]BG[place] [id number] [facility] 103 Apr, [place]BG[place], [place] [id number] [place] [facility] Jan, Lichen sclerosus et OBGYN [facility] atrophicus L90.0 ; [place], [place] [id number] Amenorrhea, unspecified N91.2 and Body mass index (BMI) 31.0-31.9, adult Z68.31 [facility] [place] [facility] 103 Jan, Other specified conditions OBGYN [facility] associated with female [place], [place] [id number] genital organs and menstrual cycle N94.89 [facility] [place] [facility] Jan, OBGYN [place] [id number] [facility] 103 Dec, Lichen sclerosus [facility] L[facility].0 ; [place], [place] [id number] Encounter for gynecological examination (general) (routine) without abnormal findings Z01.419 ; Encounter for screening for malignant neoplasm of cervix Z12.4 ; Personal history of vulvar dysplasia Z87.412 and Encounter for screening mammogram for malignant neoplasm of breast Z12.31 [facility] 103 Jul, Lichen sclerosus [facility] atrophicus L90.0 and [place], [place] [id number] Personal history of vulvar dysplasia Z87.412 [facility] 103 Jul, [place] [id number] [facility] 103 Nov, [facility] ([facility] [place], [place] [id number] (routine) with abnormal findings Z01.411 ; Lichen sclerosus et atrophicus L90.0 ; Encounter for screening for malignant neoplasm of cervix Z12.4 ; Personal history of vulvar dysplasia Z87.412 ; Encounter for screening mammogram for malignant neoplasm of breast Z12.31 and Unspecified lump in breast N63 [facility] 103 Oct, 2016 Lichen sclerosus [facility] at[facility]us L90.0 ; Personal [place], [place] [id number] history of vulvar dysplasia Z87.412 and Body mass index (BMI) 50-59.9 , adult Z68.43 [facility] 103 Jul, 2016 [facility] L[facility]0 ; Personal [place], [place] [id number] history of vulvar dysplasia Z87.412 and Body mass index (BMI) 50-59.9 , adult Z68.43 [facility] 103 Jul, Personal history of vulvar [facility] dysplasia Z87.412 ; VULVAR [place], [place] [id number] LESION 624.9 ; 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 and Body mass index (BMI) 50-59.9 , adult Z68.43 [facility] Jul, [place]BG[place] [id number] [facility] 103 Apr, Personal history of vulvar [facility] dysplasia Z87.412 ; [place], [place] [id number] 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 and Body mass index (BMI) 50-59.9 , adult Z68.43 [facility] [place] [facility] 103 Oct, [place] [id number] [facility] 103 Jan, [place] [id number] [facility] 103 Jan, VULVAR LESION 624.9 ; [facility] 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[place], [place]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.02 and HEMATURIA NOS 599.70 [facility] [address] [place], 10 Jan, 2012 Medical [facility] [id number] [facility] 103 Jan, [place] [id number] [facility] 103 Jan, 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 (JUS II) [place] [id number] 624.02 and VULVAR LESION 624.9 [facility] 103 Dec, [place] [id number] [place] [facility] 103 Dec, 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[facility] neoplasia II (JUS II) [place], [place] [id number] 624.02 and VULVAR LESION 624.9 [facility] [place] [facility] 103 Oct, [place] [id number] [facility] 103 August, 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) [place], [place] [id number] 624.02 [facility] [place] [facility] 103 Jul, Menometrorrhagia 626.2 and OBGYN [facility] 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[place], [place]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 [facility] 103 May, [place] [id number] [facility] 103 May, Menometrorrhagia 626.2 and OBGYN [facility] 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[place], [place]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 [facility] [place] [facility] 103 Apr, 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[facility] neoplasia II (JUS II) [place] [id number] 624.02 [facility] [place] [facility] 103 Feb, Menometrorrhagia 626.2 [place] [id number] [facility] [address] [place], Feb, Medical [facility] [id number] [facility] 103 Feb, Menometrorrhagia 626.2 [place] [id number] [facility] 103 Jan, Menometrorrhagia 626.2 and OBGYN [facility] 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[place], [place]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 [facility] [place] [facility] 103 Dec, Menometrorrhagia 626.2 and OBGYN [facility] 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[place], [place]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 [facility] [place] [facility] 103 Dec, Menometrorrhagia 626.2 and OBGYN [facility] 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[place], [place]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 [facility] [place] [facility] 103 Dec, Menometrorrhagia 626.2 [place], [place] [id number] [facility] 103 Dec, [place] [id number] [facility] 103 Nov, 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) [place], [place] [id number] 624.02 and Menometrorrhagia 626.2 [place] [facility] 103 Nov, 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OBGYN [facility] St neoplasia II (JUS II) [place], [place] [id number] 624.02 [place] [facility] 103 August, 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02 [place] [facility] 103 Jun, [place] [id number] [facility] [place] [facility] 103 Jun, 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) [place], [place] [id number] 624.02 [facility] [place] [facility] 103 May, [place]BG[place], [place] [id number] [facility] [place] [facility] 103 May, Condyloma acuminatum 078.11 OBGYN [facility] and Bleeder 286.9 [place], [place] [id number] [facility] [place] [facility] 08 May, 2010 Condyloma acuminatum 078.11 OBGYN [facility] and Menometrorrhagia 626.2 [place], [place] [id number] [facility] 14 Sep, 2009 STERILIZATION V25.2 [place], [place] [id number] [facility] 09 Sep, 2009 OBG[place], [place] [id number] [facility] 103 05 Jul, 2009 STERILIZATION V25.2 and OBGYN [facility] Menometrorrhagia 626.2 [place], [place] [id number] [facility] [place] [facility] 103 17 Jun, 2009 STERILIZATION V25.2 [facility] Stenosis of cervix 622.4 [place], [place] [id number] [facility] [place] [facility] 15 Jun, 2009 STERILIZATION V25.2 and OBGYN [facility] Menometrorrhagia 626.2 [place], [place] [id number] [facility] 103 Jun, FAMILY PLANNING V25.09 [place]BG[place], [place] [id number] [facility] 103 Jun, [place] [id number] [facility] 103 Jun, [place], [place] [id number] [facility] 103 May, Menometrorrhagia 626.2 [place] [id number] [facility] 103 Dec, [place] [id number] [facility] [place] [facility] 103 Nov, Menometrorrhagia 626.2 [place] [id number] [facility] 103 Oct, [place] [id number] [facility] 103 August, Condyloma acuminatum 078.11 [place], [place] [id number] [facility] [place] [facility] 103 August, Condyloma acuminatum 078.11 [place], [place] [id number] [facility] [place] [facility] 103 May, Menometrorrhagia 626.2 and OBGYN [facility] Condyloma acuminatum 078.11 [place], [place] [id number] [facility] [place] [facility] 103 Apr, [place], [place] [id number] [facility] [place] [facility] 103 Mar, Condyloma acuminatum 078.11 [place] [id number] [facility] [place] [facility] 103 Feb, Condyloma acuminatum 078.11 [place] [id number] [facility] [place] [facility] 103 Feb, Menometrorrhagia 626.2 and OBGYN [facility] Condyloma acuminatum 078.11 [place], [place] [id number] [facility] [place] [facility] 103 Feb, Menometrorrhagia 626.2 OBG[place], [place] [id number] [facility] [place] [facility] 103 Feb, Menometrorrhagia 626.2 [place], [place] [id number] [facility] [place] [facility] 103 Dec, Condyloma acuminatum 078.11 OBGYN [facility] and Menometrorrhagia 626.2 [place], [place] [id number] [facility] [place] [facility] 103 Nov, Condyloma acuminatum 078.11 [place] [id number] [facility] 103 Nov, Condyloma acuminatum 078.11 OBGYN [place], [place] [id number] [facility] 103 Oct, Condyloma acuminatum 078.11 [place] [id number] [facility] 103 Oct, Condyloma acuminatum 078.11 [place], [place] [id number] IMMUNIZATIONS No Known Immunizations SOCIAL HISTORY Never Assessed REASON FOR REFERRAL FUNCTIONAL STATUS PLAN OF CARE VITAL SIGNS MEDICATIONS Unknown Medications PROCEDURES No Known procedures RESULTS No Results REASON FOR VISIT vsmsg sent 01/16 Insurance Providers [facility] Member Patient Patient Patient Patient Patient Subscriber Subscriber Subscriber Group Insurance Plan Plan Plan Plan ID Relationship Address Phone Name Date of ID Name Date of No Type Insurance Insurance Insurance Coverage to Subscriber Address Phone Name Dates Blue Cross [phone] Blue Cross self [place] [id number] Blue [id number] [address] [place] [address] Shield [facility] [address] [employer] [phone] [employer] self [place] [phone] [id number] Blue [id number] 89 [place] 2 Cross/Blue [facility] Cross/Blue Shield [address] [place] [address] Blue [phone] Blue self [place] [phone] [id number] Cross/Blue [address] 16 Cross/Blue [place] 2 [facility] [address] Blue [phone] Blue self [place] [phone] [id number] Cross/Blue [id number] 16 Cross/Blue [place] 2 Shield [facility] [address] MEDICAL (GENERAL) HISTORY Type Description Date Medical History Hypertension Medical History heartburn Medical History allergies Medical History JUS 2-3 Medical History obesity Medical History left hip problems- hx of Medical History left hip rep;lacement Medical History gastric bypass - [place] Surgical History breast lump surgery 2004 Surgical History 1991 Surgical History 1994 Surgical History left hand carpel tunnel surg 2006 Surgical History Vulvar wide local excision 07-01-2010 Surgical History site directed biopsy 01-07-11 Surgical History Hysterosocpy/novasure. 11-10-2011 Surgical History [place] gastric bypass surgery 01/22 Surgical History ESSURE Surgical History left hip replacement 07/11/16 Hospitalization History see above
--- NOTE | 2018-02-08 08:01 | ED ---
Adult Trauma - HPI Summary HPI Summary: 47 yr old female with the complaint of left flank and posterior chest pain. The patient fell over her dogs and tripped over her own feet, landing on someone else. She complains of pain to the left lower posterior chest and left flank area. Pain worse with breathing and moving. No abdominal pain. Pain is moderate to severe. - History of Current Complaint Chief Complaint: UCBackPain Stated Complaint: SP FALL-LOWER LEFT BACK PAIN/COUGHING Time Seen by Provider: 02/08/18 07:41 Hx Last Menstrual Period: ABLATION Pain Intensity: 10 - Allergy/Home Medications Allergies/Adverse Reactions: Allergies Allergy/AdvReac Type Severity Reaction Status Date / Time erythromycin base Allergy Severe GI Upset Verified 01/12/18 07:49 Adhesive Tape Allergy Intermediate Rash Verified 01/12/18 07:49 Home Medications: Home Medications Ibuprofen 800 mg PO ONCE 02/08/18 [History Confirmed 02/08/18] PMH/Surg Hx/FS Hx/Imm Hx Cardiovascular History: Reports: Hx Hypertension Respiratory History: Reports: Hx Asthma - hx of improved with weight loss, Hx Sleep Apnea - improved since weight loss GI History: Reports: Hx Gastroesophageal Reflux Disease Musculoskeletal History: Reports: Hx Arthritis, Other Musculoskeletal History - BONE SPUR neck, knees Sensory History: Reports: Hx Contacts or Glasses - GLASSES Denies: Hx Hearing Aid Opthamlomology History: Reports: Hx Contacts or Glasses - GLASSES Neurological History: Reports: Hx Migraine - once in while Psychiatric History: Reports: Hx Anxiety, Hx Depression - MILD - Cancer History Hx Chemotherapy: No - Surgical History Surgery Procedure, Year, and Place: X2. EXC VULVAR WARTS 2010 [facility]. BREAST BX. ENDOMETRIAL ABLATION 2011 [facility];. bariatric surgery 01/27/15 done at [facility] [place]. LEFT HIP REPLACEMENT 2017. ESSURE Hx Anesthesia Reactions: No Infectious Disease History: No Infectious Disease History: Denies: Traveled Outside the [place] in Last 30 Days - Family History Known Family History: Positive: None - Social History Occupation: Employed Full-time Alcohol Use: Occasionally Substance Use Type: Reports: None Smoking Status (MU): Former Smoker Type: Cigarettes Length of Time of Smoking/Using Tobacco: 25 YRS Have You Smoked in the Last Year: No Review of Systems Constitutional: Negative Eyes: Negative Positive: Other - back, flank pain, posterior chest wall pain after fall. All Other Systems Reviewed And Are Negative: Yes Physical Exam Triage Information Reviewed: Yes Vital Signs On Initial Exam: Initial Vitals Temp Pulse Resp BP Pulse Ox 97.5 F 87 16 136/79 97 02/08/18 07:29 02/08/18 07:29 02/08/18 07:29 02/08/18 07:29 02/08/18 07:29 Vital Signs Reviewed: Yes Appearance: Positive: Well-Appearing, No Pain Distress Skin: Positive: Warm, Skin Color Reflects Adequate Perfusion Head/Face: Positive: Normal Head/Face Inspection Eyes: Positive: EOMI ENT: Positive: Normal ENT inspection Neck: Positive: Nontender Respiratory/Lung Sounds: Positive: Clear to Auscultation, Breath Sounds Present , Other - tender left posterior chest wall inferiorly. Cardiovascular: Positive: RRR. Negative: Murmur Abdomen Description: Positive: CVA Tenderness (L) Diagnostics - Vital Signs Vital Signs Temp Pulse Resp BP Pulse Ox 02/08/18 07:29 97.5 F 87 16 136/79 97 - Laboratory Lab Statement: Any lab studies that have been ordered have been reviewed, and results considered in the medical decision making process. - Radiology chest Radiology Interpretation Completed By: Radiologist - CT abd pelvis CT Interpretation Completed By: Radiologist - 10 left rib fx. fluid inferior pole left kidney - Additional Comments Diagnostic Additional Comments: Renal sono: No fluid collection left kidney. Adult Trauma Course/Dx - Course Course Of Treatment: 47 yr old with rib fx. DC home FU with pmd. - Diagnoses Provider Diagnoses: Rib fracture Discharge - Sign-Out/Discharge Documenting (check all that apply): Patient Departure All imaging exams completed and their final reports reviewed: Yes - Discharge Plan Condition: Good Disposition: HOME Prescriptions: Ibuprofen TAB* [Motrin TAB* 600 MG] 600 mg PO Q8H PRN #14 tab PRN Reason: Pain Patient Education Materials: Rib Fracture (ED) Referrals: Shelby Virk [Primary Care Provider] - 2 Days - Billing Disposition and Condition Condition: GOOD Disposition: Home
--- NOTE | 2018-02-08 08:18 | RAD ---
INDICATION: LEFT posterior rib pain post fall last night. History of asthma. Shortness of breath. COMPARISON: January 16, 2015 TECHNIQUE: Dual energy PA and routine lateral views of the chest were obtained. REPORT: Elevated lung volumes. No focal pulmonary lesion, compelling alveolar consolidation, pleural effusion, pneumothorax. The heart, pulmonary vasculature, and mediastinal contours are unremarkable. No rib fracture evident. IMPRESSION: #. Elevated lung volumes suggest potential obstructive lung disease. #. No rib fracture or pneumothorax evident. #. No acute cardiopulmonary process evident.
--- NOTE | 2018-02-08 08:35 | RAD ---
CLINICAL HISTORY: Left flank and lower back pain after a fall. Relevant surgical history includes bariatric surgery January 27, 2015 and left total hip arthroplasty 2016. COMPARISON: Ultrasound of the abdomen dated March 26, 2014 TECHNIQUE: Noncontrast CT examination of the abdomen and pelvis from the lung bases through the initial tuberosities. FINDINGS: VISUALIZED LUNG BASES: The visualized lung bases are grossly clear. There is no pleural effusion. ABDOMEN AND PELVIS: Evaluation of the solid organs and vasculature is limited without intravenous contrast. There is surgical material at the gastrojejunostomy consistent with the patient's surgical history. There is also surgical material in the left upper abdomen involving the small bowel. The liver, spleen, pancreas and adrenal glands are grossly normal in appearance. The gallbladder is normal. At the lower pole of the left kidney there is a vaguely defined fluid density structure depicted best on the coronal plane images (image 61). Otherwise the kidneys are normal in appearance without focal mass, calcification or signs of hydronephrosis. Evaluation of the gastrointestinal tract is limited in the absence of oral contrast. The small and large bowel are not distended.The patient's normal appendix is identified in the right lower quadrant measuring 5 mm in diameter with gas in the lumen (axial image 107). There is no gross retroperitoneal or mesenteric lymphadenopathy. The pelvic viscera is normal in appearance. The abdominal aorta and iliac arteries are normal in course and diameter. There is a nondisplaced fracture at the posterior left 10th rib. The left hip prosthesis creates streak artifact that somewhat obscures the left hip level. The prosthesis is anatomically aligned. Degenerative changes of the thoracolumbar spine includes loss of intervertebral disc height. There is a small degree of anterolisthesis of L4 over L5. There is sclerotic change at L5/S1 articulating surface with vacuum disc phenomenon. IMPRESSION: 1. Nondisplaced rib fracture at the posterior left 10th rib. 2. There is interval appearance of ill-defined fluid density structure at the lower pole the left kidney that was not seen on the 2014 abdominal ultrasound. Superior characterization can be made with ultrasound of the kidneys on a nonemergent basis particularly if the patient is exhibiting signs of renal colic. 3. Chronic, degenerative and postsurgical changes described in the body the report.
--- NOTE | 2018-02-08 09:34 | RAD ---
Indication: Potential lesion at the lower pole of the LEFT kidney noted on noncontrast CT of the same date. Comparison: Noncontrast CT of the same date. Technique: LEFT unilateral renal ultrasound. Report: The LEFT kidney measures 11.3 x 5.8 x 5.4 cm and demonstrates normal cortical thickness and echogenicity. Normal variant lobular contour or at the lower pole noted. No focal renal cortical lesions evident. No conspicuous stones or hydronephrosis. Negative for perinephric fluid. IMPRESSION: #. Negative renal ultrasound. Normal variant lobular cortical contour at the inferior pole likely accounts for the CT finding without concern.
[2018-02-08 09:51] VITALS: BP 128/84
== END 2018-02-08 10:37 | disposition home or self-care (01) ==
LOC: UCCORT 07:22
DX: S22.39XA Fracture of one rib, unspecified side, initial encounter for closed fracture (principal); W19.XXXA Unspecified fall, initial encounter; Y92.9 Unspecified place or not applicable; Z87.891 Personal history of nicotine dependence
CPT/HCPCS: 71046; 74176; 76775; 81003; 99212; G0463

== ENCOUNTER 2018-04-06 15:02 | Emergency (ER) | payer BC ==
[2018-04-06 17:09] VITALS: BP 154/102
--- NOTE | 2018-04-06 17:34 | UC ---
Respiratory Complaint HPI - HPI Summary HPI Summary: Pt presents with c/o chest and nasal congestion X 3 days. Pt is concerned that she has an URI again similar to what she had in the 2017 that only resolved after taking two different antibiotics. - History of Current Complaint Chief Complaint: UCGeneralIllness Stated Complaint: CHEST CONGESTION,COUGH Time Seen by Provider: 04/06/18 17:15 Hx Obtained From: Patient Hx Last Menstrual Period: ABLATION ?: No Onset/Duration: Sudden Onset, Lasting Days, Still Present Timing: Constant Severity Initially: Moderate Severity Currently: Moderate Pain Intensity: 4 Character: Cough: Nonproductive Aggravating Factors: Exertion, Deep Breaths, Recumbent Position Alleviating Factors: Nothing Associated Signs And Symptoms: Positive: Chills, Wheezing, URI, Nasal Congestion - Risk Factors Pulmonary Embolism Risk Factors: Smoking Cardiac Risk Factors: Smoking Tuberculosis Risk Factors: Smoking - Allergies/Home Medications Allergies/Adverse Reactions: Allergies Allergy/AdvReac Type Severity Reaction Status Date / Time erythromycin base Allergy Severe GI Upset Verified 01/12/18 07:49 Adhesive Tape Allergy Intermediate Rash Verified 01/12/18 07:49 Home Medications: Home Medications D-Methorphan/PE/Acetaminophen [Cold Multi-Symptom Gelcap] 1 each PO DAILY [History Confirmed 04/06/18] Olmesartan (NF) [Benicar (NF)] 5 mg PO DAILY 04/06/18 [History Confirmed ] PMH/Surg Hx/FS Hx/Imm Hx Previously Healthy: Yes - Surgical History Surgical History: Yes Surgery Procedure, Year, and Place: X2. EXC VULVAR WARTS 2010 [facility]. BREAST BX. ENDOMETRIAL ABLATION 2011 [facility];. bariatric surgery 01/27/15 done at [facility]. LEFT HIP REPLACEMENT 2016. ESSURE - Family History Known Family History: Positive: Cardiac Disease - Social History Occupation: Employed Full-time Lives: With Family Alcohol Use: Occasionally Substance Use Type: None Smoking Status (MU): Light Every Day Tobacco Smoker Type: Cigarettes Length of Time of Smoking/Using Tobacco: 25 YRS Have You Smoked in the Last Year: Yes When Did the Patient Quit Smoking/Using Tobacco: 2006 - Immunization History Most Recent Influenza Vaccination: 2013 Most Recent Tetanus Shot: 2018 Most Recent Pneumonia Vaccination: NONE Vaccination Up to Date: Yes Review of Systems All Other Systems Reviewed And Are Negative: Yes Constitutional: Positive: Chills, Fatigue Skin: Positive: Negative Eyes: Positive: Negative ENT: Positive: Sinus Congestion Respiratory: Positive: Shortness Of Breath, Cough Cardiovascular: Positive: Negative Gastrointestinal: Positive: Negative Genitourinary: Positive: Negative Motor: Positive: Negative Neurovascular: Positive: Negative Musculoskeletal: Positive: Negative Neurological: Positive: Headache Psychological: Positive: Negative Is Patient Immunocompromised?: No Physical Exam Triage Information Reviewed: Yes Appearance: Ill-Appearing Vital Signs: Initial Vital Signs Temp 97.9 F 04/06/18 17:02 Pulse 84 04/06/18 17:02 Resp 16 04/06/18 17:02 BP 154/102 04/06/18 17:02 Pulse Ox 96 04/06/18 17:02 Vital Signs Reviewed: Yes Eye Exam: Normal ENT: Positive: Nasal congestion Dental Exam: Normal Neck exam: Normal Respiratory: Positive: Decreased breath sounds Cardiovascular Exam: Normal Musculoskeletal Exam: Normal Neurological Exam: Normal Psychological Exam: Normal Skin Exam: Normal UC Diagnostic Evaluation - Laboratory O2 Sat by Pulse Oximetry: 96 Respiratory Course/Dx - Differential Dx/Diagnosis Differential Diagnosis/HQI/PQRI: Bronchitis, Influenza Provider Diagnosis: Bronchitis Discharge - Sign-Out/Discharge Documenting (check all that apply): Patient Departure All imaging exams completed and their final reports reviewed: No Studies - Discharge Plan Condition: Stable Disposition: HOME Prescriptions: Benzonatate CAP* [Tessalon 100 MG CAP*] 100 mg PO Q8H PRN #30 cap PRN Reason: Cough DOXYcycline CAP(*) [DOXYcycline 100MG CAP(*)] 100 mg PO Q12H #20 cap predniSONE TAB* [Deltasone 10 MG TAB*] 30 mg PO DAILY #12 tab Patient Education Materials: Acute Bronchitis (ED) Referrals: Shelby Virk [Primary Care Provider] - If Needed - Billing Disposition and Condition Condition: STABLE Disposition: Home
== END 2018-04-06 17:44 | disposition home or self-care (01) ==
LOC: UCCORT 15:02
DX: J40 Bronchitis, not specified as acute or chronic (principal); Z88.1 Allergy status to other antibiotic agents; F17.210 Nicotine dependence, cigarettes, uncomplicated
CPT/HCPCS: 99212; G0463

== ENCOUNTER 2019-04-27 13:34 | Emergency (ER) | payer BC ==
--- OUTSIDE RECORDS SUMMARY | 2019-04-27 13:44 | XMS REPORT ---
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 Problem Lichen sclerosus L90.0 Active 15423416 et atrophicus Problem Other specified N94.89 Active 155556854 conditions associated with female genital organs and menstrual cycle Problem Body mass index Z68.31 Active 273650529928506 (BMI) 31.0-31.9, adult ALLERGIES Substance Reaction Event Type Date Status Adhesive Unknown Drug Allergy Feb, Active erythromycin vomiting Drug Allergy Feb, Active ENCOUNTERS Encounter Location Date Diagnosis [facility] August, [place]BGYN [place] [id number] [facility] Feb, Encounter for gynecological OBGYN [facility] examination (general) [place], [place] [id number] (routine) without abnormal findings Z01.419 and Lichen sclerosus et atrophicus L90.0 [place] [facility] Sep, Lichen sclerosus et OBGYN [facility] atrophicus L90.0 [place], [place] [id number] [facility] [facility] 103 Sep, [place]BG[place] [id number] [place] [facility] 103 Jun, [place]BG[place] [id number] [facility] 103 May, Lichen sclerosus et OBGYN [facility] atrophicus L90.0 and [place], [place] [id number] Personal history of vulvar dysplasia Z87.412 [facility] 103 Jan, Encounter for gynecological OBGYN [facility] examination (general) [place], [place] [id number] (routine) without abnormal findings Z01.419 and Encounter for screening mammogram for malignant neoplasm of breast Z12.31 [place] Jan, [place]BGYN [place] [id number] [place] 103 Dec, [place]BG[place] [id number] [facility] 103 Nov, Lichen sclerosus et OBGYN [facility] atrophicus L90.0 and Mild [place] [id number] vaginal dysplasia N89.0 [place] 103 Nov, Mild vaginal dysplasia OBGYN [facility] N89.0 [place] [id number] [facility] 103 Sep, Mild vaginal dysplasia OBGYN [facility] N89.0 [place] [id number] [facility] [facility] 103 August, Mild vaginal dysplasia OBGYN [facility] N89.0 and Lichen sclerosus [place], [place] [id number] et atrophicus L90.0 [place] 103 August, Lichen sclerosus et OBGYN [facility] [address] atrophicus L90.0 [place] [id number] [place] [facility] 103 August, Personal history of vulvar OBGYN [facility] dysplasia Z87.412 [place] [id number] [place] [facility] August, Lichen sclerosus et OBGYN [facility] atrophicus L90.0 and [place], [place] [id number] Personal history of vulvar dysplasia Z87.412 [facility] 103 Jul, [place] [id number] [place] [facility] 103 Jun, [place] [id number] [place] [facility] 103 Apr, [place] [id number] [place] [facility] Jan, Lichen sclerosus et [facility] atrophicus L90.0 ; [place], [place] [id number] Amenorrhea, unspecified N91.2 and Body mass index (BMI) 31.0-31.9, adult Z68.31 [facility] 103 Jan, Other specified conditions [facility] associated with female [place] [id number] genital organs and menstrual cycle N94.89 [place] [facility] Jan, [place] [id number] [place] [facility] 103 Dec, Lichen sclerosus et OBGYN [facility] atrophicus L90.0 ; [place], [place] [id number] Encounter for gynecological examination (general) (routine) without abnormal findings Z01.419 ; Encounter for screening for malignant neoplasm of cervix Z12.4 ; Personal history of vulvar dysplasia Z87.412 and Encounter for screening mammogram for malignant neoplasm of breast Z12.31 [place] [facility] 103 Jul, Lichen sclerosus et OBGYN [facility] atrophicus L90.0 and [place], [place] [id number] Personal history of vulvar dysplasia Z87.412 [place] [facility] 103 Jul, [place] [id number] [facility] 103 Nov, Encounter for gynecological [facility] examination (general) [place], [place] [id number] (routine) with abnormal findings Z01.411 ; Lichen sclerosus et atrophicus L90.0 ; Encounter for screening for malignant neoplasm of cervix Z12.4 ; Personal history of vulvar dysplasia Z87.412 ; Encounter for screening mammogram for malignant neoplasm of breast Z12.31 and Unspecified lump in breast N63 [facility] 103 Oct, Lichen sclerosus et OBGYN [facility] atrophicus L90.0 ; Personal [place] [id number] history of vulvar dysplasia Z87.412 and Body mass index (BMI) 50-59.9 , adult Z68.43 [facility] 103 Jul, Lichen sclerosus et OBGYN [facility] atrophicus L90.0 ; Personal [place] [id number] history of vulvar dysplasia Z87.412 and Body mass index (BMI) 50-59.9 , adult Z68.43 [facility] 103 Jul, Personal history of vulvar [facility] dysplasia Z87.412 ; VULVAR [place] [id number] LESION 624.9 ; 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 and Body mass index (BMI) 50-59.9 , adult Z68.43 [facility] 103 Jul, OBGYN [place] [id number] [facility] 103 Apr, Personal history of vulvar [facility] dysplasia Z87.412 ; [place] [id number] 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 and Body mass index (BMI) 50-59.9 , adult Z68.43 [facility] 103 Oct, [place]BGYN [place] [id number] [facility] 103 Jan, [place]BG[place] [id number] [facility] Jan, VULVAR LESION 624.9 ; OBGYN [facility] 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[place], [place]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 and HEMATURIA NOS 599.70 [facility] [address] Jan, [place] [id number] [place] [facility] Jan, [place] [id number] [facility] 103 Jan, 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 neopl[facility] (JUS II) [place] [id number] 624.02 and VULVAR LESION 624.9 [facility] 103 Dec, [place] [id number] [place] 103 Dec, 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 neoplasia II (JUS II) [place] [id number] 624.02 and VULVAR LESION 624.9 [facility] 103 Oct, [place] [id number] [facility] 103 August, 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) [place] [id number] 624.02 [facility] 103 Jul, Menometrorrhagia 626.2 and OBGYN [facility] 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[place], [place]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 [facility] 103 May, [place] [id number] [facility] 103 May, Menometrorrhagia 626.2 and OBGYN [facility] 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[place], [place]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 [facility] 103 Apr, 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) [place] [id number] 624.02 [facility] 103 Feb, Menometrorrhagia 626.2 OBGYN [place], [place] [id number] [facility] [address] Feb, [place] [id number] [facility] 103 Feb, Menometrorrhagia 626.2 [place]BGYN [place] [id number] [facility] 103 Jan, Menometrorrhagia 626.2 and OBGYN [facility] 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) [place], [place] [id number] 624.02 [place] 103 Jul, [place] [id number] [facility] [facility] 103 Jul, 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) [place] [id number] 624.02 [place] [facility] 103 Jun, [place]BG[place] [id number] [facility] [address] Jun, [place] [id number] [place] [facility] 103 Jun, 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) [place], [place] [id number] 624.02 [place] 103 Jun, [place] [id number] [facility] [facility] 103 Jun, 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) [place] [id number] 624.02 [place] [facility] 103 May, [place]BG[place] [id number] [place] [facility] 103 May, Condyloma acuminatum 078.11 [facility] 286.9 [place] [id number] [place] [facility] 08 May, 2010 Condyloma acuminatum 078.11 OBGYN [facility] and Menometrorrhagia 626.2 [place] [id number] [place] [facility] 14 Sep, 2009 STERILIZATION V25.2 [place] [id number] [facility] Sep, [place] [id number] [place] [facility] 103 Jul, STERILIZATION V25.2 and OBGYN [facility] Menometrorrhagia 626.2 [place] [id number] [place] [facility] 103 17 Jun, 2009 STERILIZATION V25.2 and OBGYN [facility] Stenosis of cervix 622.4 [place], [place] [id number] [place] 103 15 Jun, 2009 STERILIZATION V25.2 and OBGYN [facility] Menometrorrhagia 626.2 [place] [id number] [facility] 103 Jun, FAMILY PLANNING V25.09 [place] [id number] [place] [facility] 103 Jun, [place] [id number] [facility] 103 Jun, [place] [id number] [facility] 103 May, Menometrorrhagia 626.2 [place] [id number] [facility] 103 Dec, [place] [id number] [facility] 103 Nov, Menometrorrhagia 626.2 [place] [id number] [facility] [facility] 103 Oct, [place] [id number] [facility] 103 August, Condyloma acuminatum 078.11 [place] [id number] [place] [facility] 103 August, Condyloma acuminatum 078.11 [place] [id number] [facility] [facility] 103 May, Menometrorrhagia 626.2 [facility] Condyloma acuminatum 078.11 [place] [id number] [place] [facility] 103 Apr, [place] [id number] [place] [facility] 103 Mar, Condyloma acuminatum 078.11 [place] [id number] [place] [facility] 103 Feb, Condyloma acuminatum 078.11 [place] [id number] [place] [facility] Feb, Menometrorrhagia 626.2 and OBGYN [facility] Condyloma acuminatum 078.11 [place] [id number] [facility] 103 Feb, Menometrorrhagia 626.2 [place]BG[place], [place] [id number] [facility] 103 Feb, Menometrorrhagia 626.2 [place] [id number] [facility] 103 Dec, Condyloma acuminatum 078.11 OBGYN [facility] and Menometrorrhagia 626.2 [place] [id number] [place] [facility] 103 Nov, Condyloma acuminatum 078.11 [place] [id number] [facility] 103 Nov, Condyloma acuminatum 078.11 [place] [id number] [facility] 103 Oct, Condyloma acuminatum 078.11 [place] [id number] [place] [facility] Oct, Condyloma acuminatum 078.11 [place] [id number] IMMUNIZATIONS No Known Immunizations SOCIAL HISTORY Never Assessed REASON FOR REFERRAL FUNCTIONAL STATUS PLAN OF CARE Activity Details Follow Up 1 Year Reason: VITAL SIGNS Height 65.5 in 2019-02-11 Weight 166 lbs 2019-02-11 BMI 27.20 kg/m2 2019-02-11 Blood pressure systolic 128 mm Hg 2019-02-11 Blood pressure diastolic 78 mm Hg 2019-02-11 MEDICATIONS Medication Instructions Dosage Frequency Start End Date Duration Status Date Cardizem 30 mg orally qd 1 tab(s) 24h Active Vitamin B-12 orally once a day 1 tab(s) 24h Active 500 mcg hctz 25mg 1/2 24h Active Women's Once A Active Day Vitamin Zebeta Active Chantix 0.5 mg orally 2 times a 1 tab(s) 12h Active day Nexium 40MG 1 TAB 24h Active olmesartan 20 orally once a day 1 tab(s) 24h Active mg calcium-vitamin orally qd 1 tab(s) 24h 30 day(s) Active D 600 mg-200 units lidocaine applied topically 1 kristine 12h 10 August, days Active topical 3% 2 times a day 2017 Celebrex 200 mg orally 2 times a 1 cap(s) 12h Active day diltiazem 180 orally once a day 1 cap(s) 24h Active mg/24 hours clobetasol applied topically 1 kristine 90 days Active topical 0.05% once a week or twice a day for 3 weeks for flare-ups ibuprofen 800 orally 3 times a 1 tab(s) 8h 10 August, 7 days Active mg day 2017 citalopram 40 orally once a day 1 tab(s) 24h Active mg PROCEDURES No Known procedures RESULTS No Results REASON FOR VISIT Annual Exam Insurance Providers [facility] Health Member Patient Patient Patient Patient Patient Subscriber Subscriber Subscriber Group Insurance Plan Plan Plan Plan ID Relationship Address Phone Name Date of ID Name Date of No Type Insurance Insurance Insurance Coverage to Subscriber Address Phone Name Dates Blue [employer] [address] Blue [employer] self [place] [phone] [id number] [place] [id number] [address] [place] [address] [facility] [address] Blue [phone] Blue self [place] [id number] Cross/Blue [id number] 16 Cross/[place] [address] [facility] [address] Blue [phone] Blue self [place] [id number] Cross/Blue [id number] 16 Cross/[place] 2 [facility] [address] [place] [phone] [employer] self [place] [phone] [id number] Blue [id number] [address] [place] [address] Cross/Blue [place] Cross/Blue Shield [address] [facility] MEDICAL (GENERAL) HISTORY Type Description Date Medical [...] Surgical History right gangleion cyst removed 01/12/18 Surgical History colonscopy 10/2018 Hospitalization History see above
[2019-04-27 13:55] VITALS: BP 139/72
--- NOTE | 2019-04-27 14:01 | UC ---
Skin Complaint HPI - HPI Summary HPI Summary: sores on the face x 10 days located on the right islam are swollen, red , painful, worse by touch , better with warm compresses no fever, no chill - History of Current Complaint Chief Complaint: UCSkin Time Seen by Provider: 04/27/19 13:37 Stated Complaint: SKIN CONCERN Hx Obtained From: Patient Hx Last Menstrual Period: ABLATION ?: No Onset/Duration: Gradual Onset, Lasting Days - 10, Still Present Timing: Constant Onset Severity: Moderate Current Severity: Moderate Pain Intensity: 5 Location: Discrete - right islam, Face - right side Character: Pain, Redness, Painful Aggravating Factor(s): Touch Alleviating Factor(s): Nothing Associated Signs & Symptoms: Positive: Tenderness. Negative: Nausea, Vomiting, Fever, Chills - Allergy/Home Medications Allergies/Adverse Reactions: Allergies Allergy/AdvReac Type Severity Reaction Status Date / Time erythromycin base Allergy Severe GI Upset Verified 04/27/19 13:56 Adhesive Tape Allergy Intermediate Rash Verified 04/27/19 13:56 PMH/Surg Hx/FS Hx/Imm Hx Cardiovascular History: Hypertension Respiratory History: Asthma - Surgical History Surgical History: Yes Surgery Procedure, Year, and Place: X2. EXC VULVAR WARTS 2010 [facility]. BREAST BX. ENDOMETRIAL ABLATION 2011 [facility];. bariatric surgery 01/27/15 done at [facility] [place] LEFT HIP REPLACEMENT 2016. ESSURE - Family History Known Family History: Positive: None, Cardiac Disease - Social History Alcohol Use: Occasionally Substance Use Type: None Smoking Status (MU): Former Smoker Type: Cigarettes Length of Time of Smoking/Using Tobacco: 25 YRS Have You Smoked in the Last Year: Yes When Did the Patient Quit Smoking/Using Tobacco: 2006 - Immunization History Most Recent Influenza Vaccination: 2013 Most Recent Tetanus Shot: 2018 Most Recent Pneumonia Vaccination: NONE Vaccination Up to Date: Yes Review of Systems All Other Systems Reviewed And Are Negative: Yes Is Patient Immunocompromised?: No Physical Exam Triage Information Reviewed: Yes Appearance: Well-Appearing, No Pain Distress, Well-Nourished Vital Signs: Initial Vital Signs Temp 98.7 F 04/27/19 13:47 Pulse 80 04/27/19 13:47 Resp 18 04/27/19 13:47 BP 139/72 04/27/19 13:47 Pulse Ox 100 04/27/19 13:47 Vital Signs Reviewed: Yes Eye Exam: Normal Eyes: Positive: Conjunctiva Clear ENT: Positive: Normal ENT inspection, Hearing grossly normal, Pharynx normal Neck: Positive: Supple, Nontender, No Lymphadenopathy Respiratory: Positive: Chest non-tender, Lungs clear, Normal breath sounds Cardiovascular: Positive: RRR, No Murmur, Pulses Normal Skin: Positive: Other - abscess right foreheat, + erythema, swollen , tenderness Course/Dx - Diagnoses Provider Diagnosis: Abscess of face Discharge ED - Sign-Out/Discharge Documenting (check all that apply): Patient Departure All imaging exams completed and their final reports reviewed: No Studies - Discharge Plan Condition: Stable Disposition: HOME Prescriptions: Clindamycin Cap(NF) [Clindamycin Cap 300 mg Cap(NF)] 300 mg PO TID #30 cap Patient Education Materials: Abscess (ED) Referrals: Shelby Virk [Primary Care Provider] - 3 Days - Billing Disposition and Condition Condition: STABLE Disposition: Home
== END 2019-04-27 14:17 | disposition home or self-care (01) ==
LOC: UCCORT 13:34
DX: L02.01 Cutaneous abscess of face (principal); I10 Essential (primary) hypertension; J45.909 Unspecified asthma, uncomplicated; Z87.891 Personal history of nicotine dependence; Z88.1 Allergy status to other antibiotic agents; Z91.09 Other allergy status, other than to drugs and biological substances
CPT/HCPCS: 99212; G0463

== ENCOUNTER 2019-06-18 09:33 | Emergency (ER) | payer BC ==
--- OUTSIDE RECORDS SUMMARY | 2019-06-18 10:28 | XMS REPORT | Continuity of Care Document ---
:1970 External Reference #:[id number] Author Name Guerda Loza MD Address [address] [place] [address] Care Team Providers Name Role Phone Deneen Reyes N.P. Care Team Information [employer] Unavailable Problems Active Problems Provider Date Localized, primary osteoarthritis Reji Burrows MD Onset: 03/28/2011 Localized, primary osteoarthritis of Reuben Juan MD, FACS Onset: 03/27 the pelvic region and thigh Arthralgia of the pelvic region and Gaurav Vasquez M.D. Onset: 07/08/2015 thigh Morbid obesity Gaurav Vasquez M.D. Onset: 03/09/2016 Aftercare following joint replacement Eric Dave M.D. Onset: 07/26/2016 surgery Premature beats Jordan Ling MD Onset: 07/05/2017 Tobacco user Jordan Ling MD Onset: 07/05/2017 Obstructive sleep apnea syndrome Jordan Ling MD Onset: 07/05/2017 Unspecified injury of muscle, fascia Guerda Loza MD Onset: 11/22/2017 and tendon of long head of biceps, right arm, subsequent encounter Rupture of tendon of biceps, long head Guerda Loza MD Onset: 12/05/2017 Social History Type Date Description Comments Sex Unknown Tobacco Use Start: Unknown End: Quit Unknown Smoking Status Reviewed: 06/05/19 Quit Smokeless Tobacco Never Used Smokeless Tobacco ETOH Use Rarely consumes alcohol on rare occasion a cocktail Recreational Drug Use Never Used Drugs Tobacco Use Start: Unknown Patient is a current 3 ciggs/ day smoker, smokes every day Allergies, Adverse Reactions, Alerts Active Allergies Reaction Severity Comments Date Erythromycin GI Upset 06/12/2008 Adhesives 07/26/2016 Medications Active Medications SIG Qnty Indications Ordering Date Provider Tramadol HCL 1 tablet by 10tabs Guerda Loza, 06/05/2019 50mg Tablets mouth every 24 MD hours as needed pain Simethicone Extra 2 tab by mouth 240caps R19.7 Fuad Mendel, 10/04/2018 Strength four times a MD 125mg Capsules day as needed Bisoprolol Fumarate 1 by mouth 180tabs Jordan Ling MD 07/10/2018 5mg twice daily Tablets Diltiazem HCL ER 1 capsule by 90caps I49.3 Terri Ellis 06/11/2018 180mg Caps mouth daily [place], [place], ER 24HR [employer] BP Monitor with regular 1units Jordan Ling MD 03/13/2018 cuff Tylenol PM Extra 2 tab by mouth Unknown Strength when needed 500-25mg Tablets Cyclobenzaprine HCL Tanya Sharma 5mg [facility] [employer] Tablets Ibuprofen 3 times a day Tanya Sharma 600mg Tablets as needed. [facility] [employer] Glucosamine 200 MG 1 Tablet by Unknown Tablet mouth daily Vitamin D3 1 by mouth Unknown 1000Unit every day Capsules Olmesartan Medoxomil 1 by mouth 90tabs Jordan Ling MD 40mg every day Tablets Nexium 1 by mouth 90caps Unknown 40mg Capsules DR every day Claritin take one tablet Unknown 10mg Tablets by mouth every day Multi Vitamin Daily 1 by mouth Unknown every day Tablets Calcium 600 1 by mouth Unknown 600mg Tablets every day Celecoxib 2 po daily Unknown 200mg Capsules Buspirone HCL take one tablet Unknown 15mg Tablets by mouth three times a day as needed for anxiety Biotin 1 by mouth Unknown 5000mcg Capsules every day Singulair 1 by mouth Unknown 10mg Tablets every day Citalopram Hydrobromide 1 by mouth Unknown every day 40mg Tablets Medications Administered in Office Medication SIG Qnty Indications Ordering Provider Date Methylprednisolone Malika Lutz, 10/03/2017 (Depomedrol) 80mg injection RPAC Injection Methylprednisolone acetate Malika Medrano, 10/03/2017 (Depomedrol) 80mg injection RPAC Injection Depomedrol 40mg/1cc Gaurav Vasquez M.D. 05/05/2015 (methylprednisolone acetate) Injection Methylprednisolone acetate Mireya Ricks, 01/11/2010 (Depomedrol) 80mg injection N.P. Injection Methylprednisolone acetate Mireya Ricks, 11/30/2009 (Depomedrol) 80mg injection N.P. Injection Depomedrol 40mg/1cc Arabella Smith MD 06/12/2008 (methylprednisolone acetate) Injection Immunizations Description No Information Available Vital Signs Date Vital Result Comment 06/05/2019 3:09pm BP Systolic 142 mmHg BP Diastolic 93 mmHg Body Temperature 97.5 F Heart Rate 68 /min Height 67 inches 5'7" [place] body weight in kilograms 61 kg O2 % BldC Oximetry 97 % 05/30/2019 8:13am BP Systolic 124 mmHg BP Diastolic 86 mmHg Body Temperature 97.1 F Heart Rate 72 /min Height 67 inches 5'7" Weight 183.00 lb BMI (Body Mass Index) 28.7 kg/m2 BSA (Body Surface Area) 1.95 m2 [place] body weight in kilograms 61 kg O2 % BldC Oximetry 96 % Results Description No Information Available Procedures Date Code Description Status 10/31/2018 88894273 Colonoscopy Completed Medical Devices Description No Information Available Encounters Type Date Location Provider Dx Diagnosis Office Visit 06/05/2019 Orthopaedic Office Guerda Loza G56.01 Carpal tunnel 3:00p syndrome, right upper limb Office Visit 05/30/2019 Orthopaedic Office Malika Medrano G56.01 Carpal tunnel 8:00a S., RPAC syndrome, right upper limb G56.01 Carpal tunnel syndrome, right upper limb M79.641 Pain in right hand M79.641 Pain in right hand Assessments Date Code Description Provider 06/05/2019 G56.01 Carpal tunnel syndrome, right upper limb Guerda Loza MD 05/30/2019 G56.01 Carpal tunnel syndrome, right upper limb Malika Medrano, [facility] 05/30/2019 G56.01 Carpal tunnel syndrome, right upper limb Malika Medrano, RPAC 05/30/2019 M79.641 Pain in right hand Malika Medrano, [facility] 05/30/2019 M79.641 Pain in right hand Malika Medrano, [facility] Plan of Treatment 06/05/2019 - Guerda Loza MDG56.01 Carpal tunnel syndrome, right upper limb Functional Status Functional Condition Comment Date Status none Active Independent with all ADL's Active Mental Status Description No Information Available Referrals Description No Information Available
--- OUTSIDE RECORDS SUMMARY | 2019-06-18 10:28 | XMS REPORT | Continuity of Care Document ---
:1970 External Reference #:[id number] Author Name Malika Medrano, [facility] Address [address] [place] [address] Care Team Providers Name Role Phone Deneen Reyes N.P. Care Team Information Bottle P[employer] Unavailable Problems Active Problems Provider Date Localized, [...] Unknown End: Quit Unknown Smoking Status Reviewed: 12/03/18 Quit Smokeless Tobacco Never Used Smokeless Tobacco ETOH Use Rarely consumes alcohol on rare occasion a cocktail Recreational Drug Use Never Used Drugs Tobacco Use Start: Unknown Patient is a current 3 ciggs/ day smoker, smokes every day Allergies, Adverse Reactions, Alerts Active Allergies Reaction Severity Comments Date Erythromycin GI Upset 06/12/2008 Adhesives 07/26/2016 Medications Active Medications SIG Qnty Indications Ordering Provider Date Simethicone Extra 2 tab by mouth 240caps R19.7 Mendel Merida, 10/04/2018 Strength four times a day 125mg Capsules as needed Bisoprolol Fumarate 1 by mouth twice 180tabs Jordan Ling MD 07/10/2018 5mg daily Tablets Diltiazem HCL ER 1 capsule by 90caps I49.3 Terri Ellis 06/11/2018 180mg mouth daily [place], Caps ER 24HR [employer] BP Monitor with regular 1units Jordan Ling MD 03/13/2018 cuff Citalopram 1 by mouth every Unknown Hydrobromide day 40mg Tablets Singulair 1 by mouth every Unknown 10mg Tablets day Biotin 1 by mouth every Unknown 5000mcg Capsules day Buspirone HCL take one tablet Unknown 15mg by mouth three Tablets times a day as needed for anxiety Celecoxib 2 po daily Unknown 200mg Capsules Calcium 600 1 by mouth every Unknown 600mg day Tablets Multi Vitamin Daily 1 by mouth every Unknown day Tablets Claritin take one tablet Unknown 10mg Tablets by mouth every day Nexium 1 by mouth every 90caps Unknown 40mg Capsules DR day Olmesartan Medoxomil 1 by mouth every 90tabs Jordan Ling MD day 40mg Tablets Vitamin D3 1 by mouth every Unknown 1000Unit day Capsules Glucosamine 200 MG 1 Tablet by Unknown Tablet mouth daily Medications Administered in Office Medication SIG Qnty Indications Ordering Provider Date Methylprednisolone acetate Malika Medrano, 10/03/2017 (Depomedrol) 80mg injection RPAC Injection Methylprednisolone acetate Malika Medrano, 10/03/2017 (Depomedrol) 80mg injection RPAC Injection Depomedrol 40mg/1cc Gaurav Vasquez M.D. 05/05/2015 (methylprednisolone acetate) Injection Methylprednisolone acetate Mireya Ricsk, 01/11/2010 (Depomedrol) 80mg injection N.P. Injection Methylprednisolone acetate Mireya Ricks, 11/30/2009 (Depomedrol) 80mg injection N.P. Injection Depomedrol 40mg/1cc Arabella Smith MD 06/12/2008 (methylprednisolone acetate) Injection Immunizations Description No Information Available Vital Signs Date Vital Result Comment 05/30/2019 8:13am BP Systolic 124 mmHg BP Diastolic 86 mmHg Body Temperature 97.1 F Heart Rate 72 /min Height 67 inches 5'7" Weight 183.00 lb BMI (Body Mass Index) 28.7 kg/m2 BSA (Body Surface Area) 1.95 m2 [place] body weight in kilograms 61 kg O2 % BldC Oximetry 96 % 12/03/2018 3:54pm BP Systolic Sitting Left Arm 130 mmHg BP Diastolic Sitting Left Arm 82 mmHg Heart Rate 72 /min Respiratory Rate 16 /min Height 65 inches 5'5" Weight 171.00 lb BMI (Body Mass Index) 28.5 kg/m2 BSA (Body Surface Area) 1.85 m2 [place] body weight in kilograms 57 kg O2 % BldC Oximetry 94 % Ra Results Description No Information Available Procedures Date Code Description Status 10/31/2018 [id number] Colonoscopy Completed Medical Devices Description No Information Available Encounters Type Date Location Provider Dx Diagnosis Office Visit 05/30/2019 Orthopaedic Office Malika Medrano G56.01 Carpal tunnel 8:00a SMARLINE [place] syndrome, right upper limb M79.641 Pain in right hand Office Visit 12/03/2018 4:00p GI Mendel Merida MD K64.4 Residual hemorrhoidal skin tags R19.7 Diarrhea, unspecified Assessments Date Code Description Provider 05/30/2019 G56.01 Carpal tunnel syndrome, right upper limb Malika Medrano [facility] 05/30/2019 M79.641 Pain in right hand Malika Medrano [facility] 12/03/2018 K64.4 Residual hemorrhoidal skin tags Mendel Merida MD 12/03/2018 R19.7 Diarrhea, unspecified Mendel Merida MD Plan of Treatment Future Appointment(s):06/07/2019 8:00 am - Guerda Loza MD at [id number]/30/2019 - Malika Medrano RPAG56.01 Carpal tunnel syndrome, right upper limbM79.641 Pain in right hand Functional Status Functional Condition Comment Date Status none Active Independent with all ADL's Active Mental Status Description No Information Available Referrals Description No Information Available
[2019-06-18 10:49] VITALS: BP 122/97
--- NOTE | 2019-06-18 11:18 | UC ---
Skin Complaint HPI - HPI Summary HPI Summary: 49-year-old female presents with 3 week history of a pimple-like lesion to the center of her forehead. States over the past couple of days the lesion has increased in size, become more tender, and this morning she woke with redness and mild swelling over the bridge of her nose and her left eye. Reports history of previous abscesses. Unknown MRSA history. Denies fever, chills, discharge, or visual disturbances. - History of Current Complaint Chief Complaint: UCSkin Time Seen by Provider: 06/18/19 10:32 Stated Complaint: ABSCESSES Hx Obtained From: Patient Hx Last Menstrual Period: ABLATION Pain Intensity: 8 - Allergy/Home Medications Allergies/Adverse Reactions: Allergies Allergy/AdvReac Type Severity Reaction Status Date / Time erythromycin base Allergy Severe GI Upset Verified 06/18/19 10:39 Adhesive Tape Allergy Intermediate Rash Verified 06/18/19 10:39 Home Medications: Home Medications Citalopram TAB* [Celexa TAB*] 40 mg PO QAM 04/04/14 [History Confirmed 06/18/19] celeCOXIB CAP* [Celebrex CAP*] 200 mg PO BID 04/04/14 [History Confirmed ] Albuterol HFA INHALER* [Ventolin HFA Inhaler*] 1 puff INH Q6HR PRN 01/16/15 [ History Confirmed 06/18/19] Loratadine [Claritin 10 MG CAP] 10 mg PO QAM PRN 01/16/15 [History Confirmed 01/27] Diltiazem XR EXTEND Releas(NF) [Cartia XR (NF)] 180 mg PO QAM 11/20/17 [History Confirmed 06/18/19] Montelukast Sodium TAB* [Singulair 10 MG TAB*] 10 mg PO QAM 11/20/17 [History Confirmed 06/18/19] busPIRone TAB* [Buspar TAB *] 15 mg PO BID 11/20/17 [History Confirmed 06/18/19] Biotin 10,000 mcg PO BID 01/05/18 [History Confirmed 06/18/19] Calcium Carb, Citrate/Vit D3 [Calcium + D3 ER Tablet] 1 tab PO QAM 01/05/18 [ History Confirmed 06/18/19] Clobetasol Propionate/Emoll [Clobetasol Emollient 0.05% Crm] 1 applic TOPICAL WEEKLY 01/05/18 [History Confirmed 06/18/19] Esomeprazole Magnesium [Nexium] 40 mg PO QAM 01/05/18 [History Confirmed ] Mv-Min/Iron/Folic/Calcium/Vitk [Women's Multivitamin Tablet] 1 tab PO BID [History Confirmed 06/18/19] Olmesartan (NF) [Benicar (NF)] 5 mg PO DAILY 04/06/18 [History Confirmed ] Mupirocin 2% OINT* [Bactroban 2 % Oint*] 1 applic TOPICAL BID #1 tube 06/18/19 [ Rx] clindamycin HCL [Clindamycin HCl] 300 mg PO TID 7 Days #21 capsule 06/18/19 [Rx] traMADol TAB* [Ultram*] 50 mg PO DAILY PRN 06/18/19 [History Confirmed 06/18/19] PMH/Surg Hx/FS Hx/Imm Hx Cardiovascular History: Hypertension Respiratory History: COPD GI/ History: Gastroesophageal Reflux Psychological History: Depression - Surgical History Surgical History: Yes Surgery Procedure, Year, and Place: X2. EXC VULVAR WARTS 2010 [facility]. BREAST BX. ENDOMETRIAL ABLATION 2011 [facility];. bariatric surgery 01/27/15 done at [facility] [place] LEFT HIP REPLACEMENT 2016. ESSURE - Family History Known Family History: Positive: Cardiac Disease - Social History Occupation: Employed Full-time Lives: Alone Alcohol Use: Occasionally Substance Use Type: None Smoking Status (MU): Former Smoker Type: Cigarettes Length of Time of Smoking/Using Tobacco: 25 YRS Have You Smoked in the Last Year: Yes When Did the Patient Quit Smoking/Using Tobacco: 2019 - Immunization History Most Recent Influenza Vaccination: 2014 Most Recent Tetanus Shot: 2018 Most Recent Pneumonia Vaccination: NONE Vaccination Up to Date: Yes Review of Systems All Other Systems Reviewed And Are Negative: Yes Constitutional: Negative: Fever, Chills Skin: Positive: Other - See HPI Eyes: Negative: Blurred Vision, Diplopia, Drainage, Eye Redness, Photophobia Respiratory: Positive: Negative Cardiovascular: Positive: Negative Gastrointestinal: Positive: Negative Genitourinary: Positive: Negative Musculoskeletal: Positive: Negative Neurological/Mental Status: Positive: Negative Is Patient Immunocompromised?: No Physical Exam - Summary Physical Exam Summary: GENERAL APPEARANCE: Well developed, well nourished, alert and cooperative, and appears to be in no acute distress. HEAD: Single erythematous, tender, fluctuant lesion approximately 1.5 cm in diameter to the mid forehead with erythema of the surrounding tissues including mild edema over the bridge of the nose and left upper eyelid. EYES: Conjunctiva clear. No drainage. PERRL, EOM intact. Vision is grossly intact. EARS: External auditory canals and tympanic membranes clear, hearing grossly intact. NOSE: No nasal discharge. THROAT: Pharynx normal No tonsilar inflammation, swelling, exudate, or lesions. Uvula midline. Oral cavity normal. Teeth and gingiva in good general condition. NECK: Neck supple, non-tender without lymphadenopathy. CARDIAC: Normal S1 and S2. No S3, S4 or murmurs. Rhythm is regular. There is no peripheral edema, cyanosis or pallor. Extremities are warm and well perfused. Capillary refill is less than 2 seconds. Peripheral pulses intact. LUNGS: Clear to auscultation without rales, rhonchi, wheezing or diminished breath sounds. ABDOMEN: Positive bowel sounds. Soft, nondistended, nontender. No guarding or rebound. No masses or hepatosplenomegally. MUSKULOSKELETAL: ROM intact to all extremities. No joint erythema or tenderness. Normal muscular development. Normal gait. SKIN: Skin normal color, texture and turgor. Triage Information Reviewed: Yes Vital Signs: Initial Vital Signs Temp 97.8 F 06/18/19 10:43 Pulse 72 06/18/19 10:43 Resp 18 06/18/19 10:43 BP 122/97 06/18/19 10:43 Pulse Ox 98 06/18/19 10:43 Vital Signs Reviewed: Yes Procedures - Procedure Summary Procedure Summary: PROCEDURE NOTE: Incision and drainage of facial abscess PROCEDURE: Informed consent was obtained and timeout protocol was performed prior to initiating the procedure. The skin was prepped with Betadine. The site was anesthetized with 1 ml of 1% lidocaine without epinephrine. A 0.5 cm linear incision along the local skin lines was made and a small amount of purulent material expressed. The abscess was explored thoroughly and sequestered pockets were opened. A wound culture was obtained and sent. An adhesive gauze dressing was then placed. Bleeding was minimal. The patient tolerated the procedure well without complications. Standard post- procedure care is explained and return precautions were given. Course/Dx - Course Course Of Treatment: 49-year-old female presents with 3 week history of a pimple-like lesion to the center of her forehead. States over the past couple of days the lesion has increased in size, become more tender, and this morning she woke with redness and mild swelling over the bridge of her nose and her left eye. Reports history of previous abscesses. Unknown MRSA history. Denies fever, chills, discharge, or visual disturbances. Afebrile. Vital signs stable. Patient had a single erythematous, tender, fluctuant lesion approximately 1.5 cm in diameter to the mid forehead with erythema of the surrounding tissues including mild edema over the bridge of the nose and left upper eyelid. Remainder of exam was unremarkable. An I&D was performed of the abscess to the forehead. A small amount of purulent drainage was expressed. A wound culture was obtained and sent. Patient was given a dose of clindamycin 300 mg PO in the clinic as there was some evidence of early facial cellulitis. Will continue her on the clindamycin 300 mg 3 times a day 7 days pending of the wound culture results. I also prescribed the patient mupirocin ointment to be used twice daily over the wound. Patient is to follow-up with her primary care provider in 2-3 days for a recheck of the wound especially if there is no improvement. Anticipatory guidance, wound care, and warning symptoms are reviewed with the patient. Verbalizes understanding and agrees with plan of care. - Differential Diagnoses - Skin Complaint Differential Diagnoses: Abscess, Cellulitis, Contact Dermatitis, Local Allergic Reaction, Tinea - Diagnoses Provider Diagnosis: Abscess of forehead, Facial cellulitis Discharge ED - Sign-Out/Discharge Documenting (check all that apply): Patient Departure All imaging exams completed and their final reports reviewed: No Studies - Discharge Plan Condition: Stable Disposition: HOME Prescriptions: clindamycin HCL [Clindamycin HCl] 300 mg PO TID 7 Days #21 capsule Mupirocin 2% OINT* [Bactroban 2 % Oint*] 1 applic TOPICAL BID #1 tube Patient Education Materials: Abscess (ED), Cellulitis (ED) Referrals: Deneen Reyes NP [Primary Care Provider] - 2 Days Additional Instructions: You had an incision and drainage of the abscess to your forehead. A wound culture was performed today. It may take 2-3 days for these results. We will contact you if there is any need to change your plan of care. Clean the wound with a mild soap and water at least once a day. Apply mupirocin ointment and cover with a bandage. This should be changed at least twice a day or any time the dressing becomes wet or soiled. Take clindamycin 300 mg 1 capsule three times a day for 7 days. We have you the first dose of antibiotic in the clinic at 11:40 am. Use acetaminophen (Tylenol) or ibuprofen (Advil, Motrin) according to directions as needed for pain. Follow up with your primary care provider in 2-3 days for recheck of wound especially if no improvement. Watch for signs of worsening infection including fever greater than 100.5 F, severe pain not managed with pain medication, redness that spreads rapidly, or severe facial swelling. Seek immediate medical attention in the emergency room should any of these occur. - Billing Disposition and Condition Condition: STABLE Disposition: Home
[2019-06-18] MEDS ORDERED: Lidocaine 1% MPF ** 5 ML VIAL INJ ONE (11:29)
[2019-06-18] MEDS ORDERED: Clindamycin CAP* 150 MG PO ONE (11:33)
--- NOTE | 2019-06-20 07:42 | UC ---
- Progress Note Progress Note: Please advise Guerline that culture was positive for MRSA. She should be responding well to treatment. Advise that she take the full course of antibiotics. Course/Dx - Diagnoses Provider Diagnoses: Abscess of forehead, Facial cellulitis Discharge ED - Sign-Out/Discharge Documenting (check all that apply): Post-Discharge Follow Up All imaging exams completed and their final reports reviewed: No Studies - Discharge Plan Condition: Stable Disposition: HOME Prescriptions: clindamycin HCL [Clindamycin HCl] 300 mg PO TID 7 Days #21 capsule Mupirocin 2% OINT* [Bactroban 2 % Oint*] 1 applic TOPICAL BID #1 tube Patient Education Materials: Cellulitis (ED), Abscess (ED) Forms: *Work Release Referrals: Deneen Reyes NP [Primary Care Provider] - 2 Days Additional Instructions: You had an incision and drainage of the abscess to your forehead. A wound culture was performed today. It may take 2-3 days for these results. We will contact you if there is any need to change your plan of care. Clean the wound with a mild soap and water at least once a day. Apply mupirocin ointment and cover with a bandage. This should be changed at least twice a day or any time the dressing becomes wet or soiled. Take clindamycin 300 mg 1 capsule three times a day for 7 days. We have you the first dose of antibiotic in the clinic at 11:40 am. Use acetaminophen (Tylenol) or ibuprofen (Advil, Motrin) according to directions as needed for pain. Follow up with your primary care provider in 2-3 days for recheck of wound especially if no improvement. Watch for signs of worsening infection including fever greater than 100.5 F, severe pain not managed with pain medication, redness that spreads rapidly, or severe facial swelling. Seek immediate medical attention in the emergency room should any of these occur. - Billing Disposition and Condition Condition: STABLE Disposition: Home
== END 2019-06-18 12:12 | disposition home or self-care (01) ==
LOC: UCCORT 09:33
DX: L03.211 Cellulitis of face (principal); L02.01 Cutaneous abscess of face; I10 Essential (primary) hypertension; K21.9 Gastro-esophageal reflux disease without esophagitis; F32.9 Major depressive disorder, single episode, unspecified; J44.9 Chronic obstructive pulmonary disease, unspecified; Z88.1 Allergy status to other antibiotic agents; Z91.09 Other allergy status, other than to drugs and biological substances; Z79.899 Other long term (current) drug therapy; Z87.891 Personal history of nicotine dependence; Z96.642 Presence of left artificial hip joint
CPT/HCPCS: 10060; 87070; 87077; 87186; 87205; 87640; 87641; 99212; A9270-GY; G0463